=== PATIENT | female | born 1930 | race Hispanic/Latino ===

== ENCOUNTER 2017-06-07 12:04 | Inpatient (IN) | payer MEDICARE ==
[2017-06-07 12:13] VITALS: BMI 27.1
[2017-06-07] MEDS ORDERED: Labetalol 5 mg/ml Inj 20ML IV STA ×2 (12:42→14:54)
[2017-06-07 13:01] LABS: BASO # 0.03 K/mm3 (0.0-2.0); BASO % 0.4 % (0.0-3.0); EOS % 0.1 % (1.5-5.0); GRAN # 5.64 (1.4-6.5); GRAN % 71.1 % (50.0-68.0); HEMOGLOBIN 10.9 gm/dL (12.0-16.0); LYMPH # 1.7 (1.2-3.4); LYMPH % 21.2 % (22.0-35.0); MEAN CELL VOLUME 82.7 fL (80.0-105.0); MEAN CORPUSCULAR HEMOGLOBIN 26.6 pg (25.0-35.0); MEAN CORPUSCULAR HGB CONC 32.2 g/dl (31.0-37.0); MEAN PLATELET VOLUME 11.2 fl (7.0-11.0); MONO # 0.6 (0.1-0.6); MONO % 7.2 % (1.0-6.0); PLATELET COUNT 176 10^3/uL (120.0-450.0); RED CELL DISTRIBUTION WIDTH 14.8 % (11.5-14.5); WHITE BLOOD COUNT 7.9 10^3/ul (4.5-11.0)
--- NOTE | 2017-06-07 13:08 | RAD ---
HISTORY: near syncope COMPARISON: 08/26/2015 FINDINGS: LUNGS: No active pulmonary disease. PLEURA: No significant pleural effusion identified, no pneumothorax apparent. CARDIOVASCULAR: Normal. OSSEOUS STRUCTURES: No significant abnormalities. VISUALIZED UPPER ABDOMEN: Normal. OTHER FINDINGS: None. IMPRESSION: No active disease.
[2017-06-07 13:12] LABS: INR 1.01 (0.93-1.08); PARTIAL THROMBOPLASTIN TIME 23.6 Seconds (23.7-30.8); PROTHROMBIN TIME 10.9 Seconds (9.9-11.8)
[2017-06-07 13:19] LABS: ALB/GLOB RATIO 1.2 (1.1-1.8); ALBUMIN 3.9 g/dL (3.0-4.8); ALT/SGPT 19 U/L (7-56); AST/SGOT 42 U/L (15-39); BLOOD UREA NITROGEN 22 mg/dL (7-21); CALCIUM 9.9 mg/dL (8.4-10.5); GFR AFRICAN-AMERICAN > 60; GFR NON-AFRICAN AMERICAN > 60; MAGNESIUM 1.9 mg/dL (1.7-2.2)
--- NOTE | 2017-06-07 13:26 | ED PDOC ---
Arrival/HPI - General Chief Complaint: Dizziness/Lightheaded Time Seen by Provider: 06/07/17 12:29 Historian: Patient - History of Present Illness Narrative History of Present Illness (Text): 06/07/17 12:35 Sonal Ribeiro is an 87 year old woman, whose past medical history includes hypertension, HDL, cardiac stents, and spinal stenosis, presents to the Emergency department complaining of waking up sweating, and almost passing out. Patient reports feeling lightheadedness, but denies chest pain, shortness of breath, headache, cough, nausea, vomiting, diarrhea, abdominal pain, or other complaints. Dr. Rider Time/Duration: 1-3 hours Symptom Onset: Sudden Symptom Course: Unchanged Activities at Onset: Rest Modifying Factors (Text): None Context: Home Associated Symptoms (Text): lightheadedness and night sweats Past Medical History - Provider Review Nursing Documentation Reviewed: Yes - Infectious Disease Hx of Infectious Diseases: None - Cardiac Hx Hypertension: Yes - Pulmonary Hx Respiratory Disorders: No - Neurological Hx Neurological Disorder: No - HEENT Hx Glaucoma: Yes - Renal Hx Renal Disorder: No - Endocrine/Metabolic Hx Endocrine Disorders: No - Hematological/Oncological Hx Blood Disorders: No - Integumentary Hx Dermatological Disorder: No - Musculoskeletal/Rheumatological Hx Falls: Yes Hx Spinal Stenosis: Yes - Gastrointestinal Hx Gastrointestinal Disorders: No - Genitourinary/Gynecological Hx Genitourinary Disorders: No - Psychiatric Hx Psychophysiologic Disorder: No Hx Substance Use: No - Surgical History Hx Coronary Stent: Yes - Anesthesia Hx Anesthesia: Yes Hx Anesthesia Reactions: No Hx Malignant Hyperthermia: No - Suicidal Assessment Feels Threatened In Home Enviroment: No Family/Social History - Physician Review Nursing Documentation Reviewed: Yes Family/Social History: Unknown Family HX Smoking Status: Never Smoked Hx Alcohol Use: No Hx Substance Use: No Hx Substance Use Treatment: No Allergies/Home Meds Allergies/Adverse Reactions: Allergies No Known Allergies Allergy (Verified 02/09/15 21:26) Home Medications: Home Meds Medication Instructions Recorded Confirmed Brimonidine 0.15% [Alphagan P 1 drop OU BID 02/09/15 06/07/17 0.15% Opht] Furosemide [Lasix] 20 mg PO DAILY 02/09/15 06/07/17 Latanoprost 0.005% Opht [Xalatan 1 drop OU DAILY 02/09/15 06/07/17 Opht] Nebivolol HCl [Bystolic] 20 mg PO DAILY 02/09/15 06/07/17 Rosuvastatin Calcium [Crestor] 20 mg PO DAILY 02/09/15 06/07/17 Valsartan [Diovan] 160 mg PO DAILY 06/07/17 06/07/17 Review of Systems - Physician Review All systems were reviewed & negative as marked: Yes - Review of Systems Constitutional: Night Sweats. absent: Fevers Respiratory: absent: SOB Cardiovascular: absent: Chest Pain Gastrointestinal: absent: Abdominal Pain, Nausea Neurological: Other (lightheadedness). absent: Headache Physical Exam Vital Signs Temp Pulse Resp BP Pulse Ox 06/07/17 16:54 63 156/110 H 06/07/17 15:34 62 207/76 H 06/07/17 14:04 64 18 184/78 H 98 06/07/17 13:08 62 210/78 H 06/07/17 12:19 205/64 H 06/07/17 12:18 98.5 F 60 18 206/45 H 96 Temperature: Afebrile Blood Pressure: Hypertensive Pulse: Regular Respiratory Rate: Normal Appearance: Positive for: Well-Appearing, Non-Toxic, Comfortable Pain Distress: None Mental Status: Positive for: Alert and Oriented X 3 - Systems Exam Head: Present: Atraumatic, Normocephalic Pupils: Present: PERRL Extroacular Muscles: Present: EOMI Conjunctiva: Present: Normal Mouth: Present: Moist Mucous Membranes Neck: Present: Normal Range of Motion Respiratory/Chest: Present: Clear to Auscultation, Good Air Exchange. No: Respiratory Distress, Accessory Muscle Use Cardiovascular: Present: Regular Rate and Rhythm, Normal S1, S2. No: Murmurs Abdomen: Present: Normal Bowel Sounds. No: Tenderness, Distention, Peritoneal Signs Back: Present: Normal Inspection Upper Extremity: Present: Normal Inspection. No: Cyanosis, Edema Lower Extremity: Present: Normal Inspection. No: Edema Neurological: Present: GCS=15, CN II-XII Intact, Speech Normal Skin: Present: Warm, Dry, Normal Color. No: Rashes Psychiatric: Present: Alert, Oriented x 3, Normal Insight, Normal Concentration Medical Decision Making ED Course and Treatment: 06/07/17 12:35 Impression: 87 year old female with lightheadedness about to pass out. Differential Diagnosis included but are not limited to: near syncopy vs. hypertensive urgency Plan: -- EKG -- Chest X-ray -- CT Head without contrast -- Labs -- Urinalysis -- Trandate -- Reassess and disposition Prior Visits: Notes and results from previous visits were reviewed. Patient was last seen in the emergency department on 08/27/2015. Progress Notes: EKG: Ordered, reviewed, and independently interpreted the EKG. Rate : 62 BPM Rhythm : NSR Interpretation : Left bundle branch block. No changes from previous EKG. Comparison : 08/27/2017 06/07/17 13:15 Chest X-ray: Creator : Yousuf Gong MD COMPARISON: 08/26/2015 FINDINGS: LUNGS:No active pulmonary disease. PLEURA: No significant pleural effusion identified, no pneumothorax apparent. CARDIOVASCULAR: Normal. OSSEOUS STRUCTURES: No significant abnormalities. VISUALIZED UPPER ABDOMEN: Normal. OTHER FINDINGS: None. IMPRESSION: No active disease. 06/07/17 14:[address]: Creator : Yousuf Gong MD COMPARISON: 02/09/2015 FINDINGS: HEMORRHAGE: No intracranial hemorrhage. BRAIN: No mass effect or edema. Chronic microvascular changes are seen in the periventricular white matter VENTRICLES: Unremarkable. No hydrocephalus. CALVARIUM: Unremarkable. PARANASAL SINUSES: Unremarkable as visualized. No significant inflammatory changes. MASTOID AIR CELLS: Unremarkable as visualized. No inflammatory changes. OTHER FINDINGS: None. IMPRESSION: No acute findings 06/07/17 15:22 Case was discussed with Dr. Martel, Oncology Coordinator, who was consulted on last admission. He recommended Lovenox and Aspirin. Case discussed with Dr. Machado who will place on his service to Telemetry. The hospitalist admits for Dr. Rider. We agreed to add Plavix for treatment. 06/07/17 17:24 Blood pressure improved to 156/110. This was after two doses of Labetolol. Patient is comfortable and in no acute distress. Does not have chest pain or shortness of breathe. No symptoms at this time. - Critical Care Critical Care Minutes: 30 minutes - Lab Interpretations Lab Results: 06/07/17 12:45 06/07/17 12:45 Lab Results 06/07/17 12:45: TSH 3rd Generation 4.27 06/07/17 12:45: Triglycerides 108, Cholesterol 171, LDL Cholesterol Direct 75, HDL Cholesterol 75 H 06/07/17 12:45: PT 10.9, INR 1.01, APTT 23.6 L 06/07/17 12:45: Sodium 138, Potassium 4.2, Chloride 105, Carbon Dioxide 24, Anion Gap 13, BUN 22 H, Creatinine 0.8, Est GFR ( Amer) > 60, Est GFR ( Non-Af Amer) > 60, Random Glucose 96, Calcium 9.9, Magnesium 1.9, Total Bilirubin 0.7, AST 42 H, ALT 19, Alkaline Phosphatase 65, Lactate Dehydrogenase 450, Total Creatine Kinase 160, Troponin I 2.15 H* D, Total Protein 7.1, Albumin 3.9, Globulin 3.2, Albumin/Globulin Ratio 1.2 06/07/17 12:45: WBC 7.9, RBC 4.10, Hgb 10.9 L, Hct 33.9 L, MCV 82.7, MCH 26.6, MCHC 32.2, RDW 14.8 H, Plt Count 176, MPV 11.2 H, Gran % 71.1 H, Lymph % (Auto) 21.2 L, Brewster % (Auto) 7.2 H, Eos % (Auto) 0.1 L, Baso % (Auto) 0.4, Gran # 5.64 , Lymph # 1.7, Brewster # 0.6, Eos # 0.0, Baso # 0.03 I have reviewed the lab results: Yes - RAD Interpretation Radiology Orders: 06/07/17 12:42 HEAD W/O CONTRAST [CT] Stat CHEST PORTABLE [RAD] Stat Payable Manager: Radiologist - EKG Interpretation Interpreted by ED Physician: Yes Type: 12 lead EKG - Medication Orders Current Medication Orders: Aspirin (Ecotrin) 325 mg PO 0800 [facility] Atorvastatin Calcium (Lipitor) 80 mg PO DIN [facility] Brimonidine Tartrate (Alphagan P 0.15% Opht) 1 drop OU BID [facility] Clopidogrel Bisulfate (Plavix) 75 mg PO DAILY [facility] Enoxaparin Sodium (Lovenox) 70 mg SC Q12H [facility] PRN Reason: Protocol Furosemide (Lasix) 20 mg PO DAILY [facility] Hydralazine HCl (Apresoline) 10 mg IVP Q6 PRN PRN Reason: Systolic Blood Pressure Last Admin: 06/07/17 16:54 Dose: 10 mg Latanoprost (Xalatan Opht) 0 ml OU DAILY [facility] Non-Formulary Medication (Nebivolol Hcl [Bystolic]) 20 mg PO DAILY [facility] Valsartan (Diovan) 320 mg PO DAILY [facility] Discontinued Medications Aspirin (Aspirin Chewable) 162 mg PO STAT [facility] Stop: 06/07/17 15:34 Aspirin (Aspirin Chewable) 162 mg PO STAT STA Stop: 06/07/17 16:21 Atorvastatin Calcium (Lipitor) 80 mg PO STAT [facility] Stop: 06/07/17 16:17 Clopidogrel Bisulfate (Plavix) 300 mg PO STAT [facility] Stop: 06/07/17 16:21 Last Admin: 06/07/17 17:20 Dose: 300 mg Enoxaparin Sodium (Lovenox) 70 mg SC STAT [facility] PRN Reason: Protocol Stop: 06/07/17 15:09 Last Admin: 06/07/17 15:34 Dose: 70 mg Labetalol HCl (Trandate) 20 mg IV STAT [facility] Stop: 06/07/17 12:43 Last Admin: 06/07/17 13:08 Dose: 20 mg Labetalol HCl (Trandate) 40 mg IV STAT STA Stop: 06/07/17 14:55 Last Admin: 06/07/17 15:34 Dose: 40 mg - Scribe Statement The provider has reviewed the documentation as recorded by the Scribe 06/07/2017 Dari Jorge Provider Scribe Attestation: All medical record entries made by the Scribe were at my direction and personally dictated by me. I have reviewed the chart and agree that the record accurately reflects my personal performance of the history, physical exam, medical decision making, and the department course for this patient. I have also personally directed, reviewed, and agree with the discharge instructions and disposition. Disposition/Present on Arrival - Present on Arrival Any Indicators Present on Arrival: No History of DVT/PE: No History of Uncontrolled Diabetes: No Urinary Catheter: No History of Decub. Ulcer: No History Surgical Site Infection Following: None - Disposition Have Diagnosis and Disposition been Completed?: Yes Diagnosis: NSTEMI (non-ST elevated myocardial infarction), Hypertensive emergency Disposition: HOSPITALIZED Disposition Time: 15:37 Patient Plan: Admission Condition: GUARDED
[2017-06-07 13:58] LABS: TROPONIN I 2.15 ng/mL
--- NOTE | 2017-06-07 14:39 | CT ---
PROCEDURE: CT HEAD WITHOUT CONTRAST. HISTORY: near syncope, htn COMPARISON: 02/09/2015 TECHNIQUE: Axial computed tomography images were obtained through the head/brain without intravenous contrast. Radiation dose: Total exam DLP = 780 mGy-cm. This CT exam was performed using one or more of the following dose reduction techniques: Automated exposure control, adjustment of the mA and/or kV according to patient size, and/or use of iterative reconstruction technique. FINDINGS: HEMORRHAGE: No intracranial hemorrhage. BRAIN: No mass effect or edema. Chronic microvascular changes are seen in the periventricular white matter VENTRICLES: Unremarkable. No hydrocephalus. CALVARIUM: Unremarkable. PARANASAL SINUSES: Unremarkable as visualized. No significant inflammatory changes. MASTOID AIR CELLS: Unremarkable as visualized. No inflammatory changes. OTHER FINDINGS: None. IMPRESSION: No acute findings
[2017-06-07] MEDS ORDERED: Enoxaparin 80 mg Syringe SC STA (15:08)
--- NOTE | 2017-06-07 15:14 | CARD ---
APPROVED REPORT EKG Measurement Heart [id number] <Conclusion> Normal sinus rhythm Left axis deviation Left bundle branch block
[2017-06-07 16:40] LABS: HDL CHOLESTEROL 75 mg/dL (29-60)
[2017-06-07 16:51] LABS: LDL CHOLESTEROL 75 mg/dL (0-129)
--- NOTE | 2017-06-07 18:11 | CP.PCM.HP ---
<Edward Norman - Last Filed: 06/07/17 18:02> History of Present Illness - History of Present Illness History of Present Illness: Patient is an 87 year old female with a PMH of hypertension, HLD, CAD stent x1 , and spinal stenosis who presents to the emergency department with complaints of general fatigue and lightheadedness. Pt reports waking up this AM with presenting symptoms. Pt reports when she was up getting around today she experienced sweating and pre-syncopal episode. The patient was evaluated in the ED and found to have an increase in her troponin level of 2.15 and no changes on EKG from previous. Dr. Martel was consulted on her last admission and will be consulted for her on this admission. Pt denies chest pain, shortness of breath, headache, abdominal pain, fever, and vomiting. PMH: hypertension, HLD, CAD, intermittent nausea, and spinal stenosis PSH: cardiac stent 13 years ago, cataracts, left foot hammer-toe repair Allergies: denies FMH: father- MD Social: denies smoking and alcohol use Meds: Diovan 160mg Bystolic 20mg Xalatan Ophthalmic drops Furosemide 20mg Alphagan drops Crestor 20mg Present on Admission - Present on Admission Any Indicators Present on Admission: No History of DVT/PE: No History of Uncontrolled Diabetes: No Urinary Catheter: No Decubitus Ulcer Present: No Review of Systems - Hematologic/Lymphatic Additional comments: Constitutional: pt denies fever, chills, generalized weakness ENT: pt denies dysphagia, otalgia, hearing deficit, rhinorrhea Eyes: pt denies sudden loss of vision, diplopia, blurred vision MSK: pt denies muscle stiffness, extremity cramping Cardio: pt denies heart murmur, cp Pulm: pt denies sob, cough, hemoptysis, wheeze GI: pt denies loss of appetite, abdominal pain, constipation, melena, v/d : pt denies burning on urination, urinary frequency, hematuria, urinary urgency Neuro: +dizziness, pt denies paresis, BELLO, paresthesia, numbness, tingling Derm: pt denies nail changes Endo: + night sweats, pt denies polydipsia Psych: pt denies anxiety, depression, mood changes Past Patient History - Infectious Disease Hx of Infectious Diseases: None - Past Social History Smoking Status: Never Smoked Alcohol: None Drugs: Denies - CARDIAC Hx Hypertension: Yes - PULMONARY Hx Respiratory Disorders: No - NEUROLOGICAL Hx Neurological Disorder: No - HEENT Hx Glaucoma: Yes - RENAL Hx Chronic Kidney Disease: No - ENDOCRINE/METABOLIC Hx Endocrine Disorders: No - HEMATOLOGICAL/ONCOLOGICAL Hx Blood Disorders: No - INTEGUMENTARY Hx Dermatological Problems: No - MUSCULOSKELETAL/RHEUMATOLOGICAL Hx Falls: Yes Hx Spinal Stenosis: Yes - GASTROINTESTINAL Hx Gastrointestinal Disorders: No - GENITOURINARY/GYNECOLOGICAL Hx Genitourinary Disorders: No - PSYCHIATRIC Hx Psychophysiologic Disorder: No Hx Substance Use: No - SURGICAL HISTORY Hx Coronary Stent: Yes - ANESTHESIA Hx Anesthesia: Yes Hx Anesthesia Reactions: No Hx Malignant Hyperthermia: No Meds Allergies/Adverse Reactions: Allergies Allergy/AdvReac Type Severity Reaction Status Date / Time No Known Allergies Allergy Verified 02/09/15 21:26 Physical Exam - Additional Findings Additional findings: Vital Signs as below Constitutional: a&o x 4 Head and Neck: neck supple, no jvd, trachea midline, carotid midline, no cervical/head mass Eyes: joel, nonicteric sclera, eom intact ENT: auditory acuity grossly intact, throat not congested, no nasal deformity Cardio: rrr, no m/r/g, no carotid bruit, nml s1, s2 Pulm: no accessory muscle use, equal nml breath sounds bilaterally, ctab Abd: s/nt/nd, nbs x 4 q, no palpable masses Derm: no rashes, no ulcers Extr: 2+ pitting edema, no cyanosis, no calf tenderness, no lesions Neuro: cn II-XII grossly intact, ue and le 5/5 muscle strength bilaterally, no los ue, le bilaterally and core Results - Vital Signs Recent Vital Signs: Last Vital Signs Temp 98.5 F 06/07/17 12:18 Pulse 63 06/07/17 16:54 Resp 18 06/07/17 14:04 BP 156/110 H 06/07/17 16:54 Pulse Ox 98 06/07/17 14:04 - Labs Result Diagrams: 06/07/17 12:45 06/07/17 12:45 Assessment & Plan - Assessment and Plan (Free Text) Assessment: Pt is a 87 year old female with elevation of Troponin of 2.15 with no acute changes on EKG Plan: 1. NSTEMI - Elevated troponin of 2.[address] segment elevations or T wave inversions - Continue to follow patient with Troponin Q6h x2 or until decline - Consult Dr. Martel with Cardiology - 2D echocardiogram - Lovenox - Lipitor 80mg - Aspirin 365 - Plavix load with 300 and continue 75mg daily - Valsartan 320mg - Lasix 20mg 2. Hypertension - History of hypertension - Patient BP in ED 200/100 - Continue to monitor closely - Increase Valsartan to 320mg - Hydralazine IVP 10 mg with goal of SBP <160 3. Hx of CHF - 2d echocardiogram to evaluate EF 4. GI/DVT pps - Protonix 40mg - Lovenox - Date & Time Date: 06/07/17 Time: 18:28 <Shira Hitchcock MD - Last Filed: 06/11/17 16:55> Results - Vital Signs Recent Vital Signs: Last Vital Signs Temp 98.3 F 06/11/17 12:00 Pulse 65 06/11/17 14:16 Resp 20 06/11/17 12:00 BP 183/56 H 06/11/17 14:16 Pulse Ox 97 06/11/17 09:00 - Labs Result Diagrams: 06/11/17 08:30 06/09/17 11:00 Labs: Laboratory Results - last 24 hr 06/11/17 08:30 WBC 10.5 RBC 4.19 Hgb 11.3 L Hct 34.5 L MCV 82.3 MCH 27.0 MCHC 32.8 RDW 15.1 H Plt Count 183 MPV 11.7 H Gran % 75.0 H Lymph % (Auto) 15.8 L Hunt % (Auto) 8.5 H Eos % (Auto) 0.5 L Baso % (Auto) 0.2 Gran # 7.85 H Lymph # 1.7 Hunt # 0.9 H Eos # 0.1 Baso # 0.02 Attending/Attestation - Attestation I have personally seen and examined this patient.: Yes I have fully participated in the care of the patient.: Yes I have reviewed all pertinent clinical information: Yes Notes (Text): 06/11/17 16:50 Patient was seen and examined with faculty i on call medical assistant. 87 F with PMH of CAD, SP cardiac stent, CHF,HTN was admitted with weakness, not feeling well, found to have elevated troponin 2.13 suggestive of NSEMI, EKG is negative for acute ischemic changes.Patient has been started on , on ASA/Plavix/ lovenox/Lipitor. We will get 2D Echo, Blood pressure is running high, we will adjust medications and will monitor. Cardiology has been consulted, we will follow up cardiology recommendation, patient will need cardiac catherization. Management plan was discussed in detail with patient. Education was provided.
[2017-06-07] MEDS ORDERED: Morphine 2 mg/ml ISec IVP PRN (21:26)
[2017-06-08] MEDS ORDERED: Enoxaparin 80 mg Syringe SC SCH (03:30)
[2017-06-08] MEDS: Pantoprazole 40 mg EC Tab PO SCH ×2 (06:32→17:40)
[2017-06-08] MEDS ORDERED: Aspirin 325 mg EC Tablets PO SCH (08:00)
[2017-06-08 08:50] LABS: ALB/GLOB RATIO 1.2 (1.1-1.8); ALBUMIN 3.4 g/dL (3.0-4.8); ALT/SGPT 19 U/L (7-56); AST/SGOT 45 U/L (15-39); BLOOD UREA NITROGEN 22 mg/dL (7-21); CALCIUM 9.7 mg/dL (8.4-10.5); GFR AFRICAN-AMERICAN > 60; GFR NON-AFRICAN AMERICAN > 60; MAGNESIUM 1.9 mg/dL (1.7-2.2)
--- NOTE | 2017-06-08 08:52 | CP.PCM.PN ---
<Edward Norman - Last Filed: 06/08/17 12:56> Subjective - Date & Time of Evaluation Date of Evaluation: 06/08/17 Time of Evaluation: 08:48 - Subjective Subjective: Pt s/e at bedside on GMF. Patient has no complaints at this time. Denies chest pain, chest pressure, shortness of breath, nausea, vomiting. Pt troponin this AM has shown initial decline at 2.6 from 4.37 yesterday evening. Patient is being evaluated by cardiology and plan for heart catheritization tomorrow. Objective - Vital Signs/Intake and Output Vital Signs (last 24 hours): Temp Pulse Resp BP Pulse Ox 97.5 F L 60 20 164/56 H 98 06/08/17 06:00 06/08/17 06:30 06/08/17 06:00 06/08/17 06:30 06/08/17 06:00 Intake and Output: 06/08/17 06/08/17 06:59 18:59 Intake Total 240 Output Total 0 Balance 240 - Medications Medications: Current Medications Aspirin (Ecotrin) 81 mg PO 0800 [facility] Atorvastatin Calcium (Lipitor) 80 mg PO DIN [facility] Brimonidine Tartrate (Alphagan P 0.15% Opht) 1 drop OU BID [facility] Clopidogrel Bisulfate (Plavix) 75 mg PO DAILY [facility] Enoxaparin Sodium (Lovenox) 70 mg SC Q12H [facility] PRN Reason: Protocol Last Admin: 06/08/17 03:46 Dose: 70 mg Furosemide (Lasix) 20 mg PO DAILY [facility] Hydralazine HCl (Apresoline) 10 mg IVP Q6 PRN PRN Reason: Systolic Blood Pressure Last Admin: 06/08/17 06:30 Dose: 10 mg Latanoprost (Xalatan Opht) 0 ml OU DAILY [facility] Metoprolol Tartrate (Lopressor) 25 mg PO BID [facility] Morphine Sulfate (Morphine) 1 mg IVP Q4H PRN PRN Reason: Pain, Mild (1-3) Non-Formulary Medication (Nebivolol Hcl [Bystolic]) 20 mg PO DAILY [facility] Pantoprazole Sodium (Protonix Ec Tab) 40 mg PO 0600,1600 [facility] Last Admin: 06/08/17 06:32 Dose: 40 mg Valsartan (Diovan) 320 mg PO DAILY [facility] - Labs Labs: PT 10.9 Seconds (9.9-11.8) 06/07/17 12:45 INR 1.01 (0.93-1.08) 06/07/17 12:45 APTT 23.6 Seconds (23.7-30.8) L 06/07/17 12:45 - Head Exam Head Exam: ATRAUMATIC, NORMAL INSPECTION - Eye Exam Eye Exam: EOMI, PERRL - ENT Exam ENT Exam: Mucous Membranes Moist - Neck Exam Neck Exam: Full ROM - Respiratory Exam Respiratory Exam: Clear to Ausculation Bilateral, NORMAL BREATHING PATTERN - Cardiovascular Exam Cardiovascular Exam: REGULAR RHYTHM, +S1, +S2 - Rectal Exam Rectal Exam: Deferred - Extremities Exam Extremities Exam: Full ROM, Normal Capillary Refill, Normal Inspection - Back Exam Back Exam: Full ROM, NORMAL INSPECTION - Neurological Exam Neurological Exam: Alert, Awake, CN II-XII Intact Neuro motor strength exam: Left Upper Extremity: 5, Right Upper Extremity: 5, Left Lower Extremity: 5, Right Lower Extremity: 5 - Psychiatric Exam Psychiatric exam: Normal Affect, Normal Mood - Skin Skin Exam: Dry, Warm Assessment and Plan - Assessment and Plan (Free Text) Assessment: Patient is a 87 year old female who is being evaluated for NSTEMI Plan: 1. NSTEMI - Elevated troponin of 2.[address] segment elevations or T wave inversions - Troponin peak last evening of 4.37 and is 2.60 this AM - Dr. Martel with Cardiology following - [facility] scheduled for tomorrow - Pt is npo after midnight - 2D echocardiogram - Lovenox - Lipitor 80mg - Aspirin 365 - Plavix load with 300 and continue 75mg daily - Valsartan 320mg - Lasix 20mg 2. Hypertension - History of hypertension - Patient BP this AM is 156/57 - Continue to monitor closely - Increase Valsartan to 320mg - Hydralazine IVP 10 mg with goal of SBP <160 3. Hx of CHF - 2d echocardiogram to evaluate EF 4. GI/DVT pps - Protonix 40mg - Lovenox <Beverly Haley - Last Filed: 06/08/17 17:22> Objective - Vital Signs/Intake and Output Vital Signs (last 24 hours): Temp Pulse Resp BP Pulse Ox 98.8 F 52 L 18 156/57 H 98 06/08/17 11:46 06/08/17 14:00 06/08/17 11:46 06/08/17 11:46 06/08/17 06:00 Intake and Output: 06/08/17 06/08/17 06:59 18:59 Intake Total 240 960 Output Total 0 Balance 240 960 - Medications Medications: Current Medications Aspirin (Ecotrin) 81 mg PO DAILY [facility] Last Admin: 06/08/17 10:36 Dose: 81 mg Atorvastatin Calcium (Lipitor) 80 mg PO DIN [facility] Clopidogrel Bisulfate (Plavix) 75 mg PO DAILY [facility] Last Admin: 06/08/17 10:10 Dose: 75 mg Furosemide (Lasix) 20 mg PO DAILY [facility] Last Admin: 06/08/17 10:13 Dose: 20 mg Home Med (Home Med) 0 unit OU BID [facility] Hydralazine HCl (Apresoline) 10 mg IVP Q6 PRN PRN Reason: Systolic Blood Pressure Last Admin: 06/08/17 06:30 Dose: 10 mg Latanoprost (Xalatan Opht) 0 ml OU DAILY [facility] Last Admin: 06/08/17 10:21 Dose: Not Given Metoprolol Tartrate (Lopressor) 25 mg PO BID [facility] Last Admin: 06/08/17 10:10 Dose: 25 mg Morphine Sulfate (Morphine) 1 mg IVP Q4H PRN PRN Reason: Pain, Mild (1-3) Pantoprazole Sodium (Protonix Ec Tab) 40 mg PO 0600,1600 [facility] Last Admin: 06/08/17 06:32 Dose: 40 mg Valsartan (Diovan) 320 mg PO DAILY [facility] Last Admin: 06/08/17 10:09 Dose: 320 mg - Labs Labs: 06/08/17 07:00 06/08/17 06:00 PT 10.9 Seconds (9.9-11.8) 06/07/17 12:45 INR 1.01 (0.93-1.08) 06/07/17 12:45 APTT 23.6 Seconds (23.7-30.8) L 06/07/17 12:45 Attending/Attestation - Attestation I have personally seen and examined this patient.: Yes I have fully participated in the care of the patient.: Yes I have reviewed all pertinent clinical information, including history, physical exam and plan: Yes Notes (Text): 06/08/17 17:20 attending note; Patient seen and examined with resident. Patient is a 87-year-old female with a past medical history of hypertension, hypercholesemia, CAD with stent placement is admitted with shortness of breath and chest discomfort. acute non-ST elevation OR; continue aspirin, Plavix, Lipitor, metoprolol. Troponin is trending down. Nothing by mouth for cardiac cath in a.m. case discussed with cardiology in detail. Upon discharge the patient will follow up with PMD .
--- NOTE | 2017-06-08 08:55 | CON ---
INDICATIONS: NSTEMI. HISTORY OF PRESENT ILLNESS: This is an 87-year-old woman admitted yesterday through the emergency room with weakness, diaphoresis, near-syncope. She felt unwell at home and came to the emergency room. There was no history of chest pain, but troponins are elevated. This morning she feels better resting in bed without any symptoms at all. There was no chest pain, orthopnea, PND, vertigo, edema, fever, chills, cough, sputum production, hemoptysis, abdominal pain, nausea, vomiting, diarrhea, constipation, melena. PAST MEDICAL HISTORY: Notable for coronary artery disease with remote coronary intervention. She has history of chronic left bundle-branch block, hypertension, hyperlipidemia, spinal stenosis, glaucoma, cataracts, and podiatric surgery. There is no history of rheumatic fever, congestive heart failure, diabetes, stroke, TIA, or gout. MEDICATIONS: At the time of admission include Bystolic, Crestor, Diovan, Lasix, Xalatan, and Alphagan. ALLERGIES: There are no medications allergies. SOCIAL HISTORY: She lives at home. She is ambulatory. She does not smoke. She does not drink alcohol significantly. FAMILY HISTORY: Notable for heart disease. REVIEW OF SYSTEMS: A 10-point review of systems is otherwise unremarkable except as noted above. PHYSICAL EXAMINATION: GENERAL: She is a well-developed elderly woman, lying in bed, on telemetry, in no acute distress. VITAL SIGNS: She is in sinus rhythm with left bundle-branch block, afebrile. Blood pressure 164/56, respirations 18 to 20, O2 saturation 98% on room air. HEENT: Reveals no neck vein distention, thyromegaly, carotid bruits. Mucous membranes moist. Conjunctivae pink. NECK: Supple. LUNGS: Lung rinaldi clear. HEART: Revealed normal first and second heart sounds. There is a systolic murmur along the left sternal border at the cardiac apex. ABDOMEN: Soft. Bowel sounds present. No mass, organomegaly, tenderness, rebound, guarding, CVA tenderness, or palpable abdominal aortic aneurysm. EXTREMITIES: Revealed no cyanosis or clubbing. There is mild edema. NEUROLOGIC: She is awake, alert, and oriented. PSYCHIATRIC: Normal as to mood and affect. SKIN: Warm and dry. No rash or cellulitis. LABORATORY DATA AND IMAGING: Chest x-ray reveals no active disease. CT scan of the head reveals no acute findings. EKG reveals regular sinus rhythm with left bundle-branch block unchanged from the previous EKG. White count, platelet count normal. Hemoglobin 10.9, hematocrit 33.9. PT/INR normal. PTT 23.6. Electrolytes, BUN, creatinine, blood sugar unremarkable. AST mildly elevated at 42, ALT normal, alk phos normal, magnesium normal. CK 160. Troponins are 2.15, repeat 4.37, repeat 2.60. Total cholesterol 171, LDL 75, triglycerides 108. TSH is normal. HDL 75. IMPRESSION: The patient is an 87-year-old woman with known coronary artery disease status post remote coronary stent with a chronic left bundle-branch block, admitted with nonspecific symptoms of lightheadedness, weakness, near-syncope, diaphoresis, but no chest pain, found to have elevated troponins, probable NSTEMI. She is on telemetry. She has received aspirin, Plavix, Lovenox, hydralazine. She has had no further symptoms. At this time, I will discuss with her whether or not she wishes to proceed with cardiac catheterization. I will also discuss her case with Dr. Rider. In the meantime, we will continue medical treatment. She will get aspirin, Diovan, Lasix, Lipitor, metoprolol, Lovenox, Plavix. We will check an echocardiogram. We will monitor I's and O's, stool for occult blood. I will review her old records. I will make additional recommendations based on the clinical course. Josue Martel MD MTDMoises
[2017-06-08 09:10] LABS: BASO # 0.02 K/mm3 (0.0-2.0); BASO % 0.3 % (0.0-3.0); EOS # 0.1 (0.0-0.7); EOS % 1.4 % (1.5-5.0); GRAN # 3.93 (1.4-6.5); GRAN % 53.7 % (50.0-68.0); HEMOGLOBIN 10.3 gm/dL (12.0-16.0); LYMPH # 2.4 (1.2-3.4); LYMPH % 32.4 % (22.0-35.0); MEAN CELL VOLUME 81.5 fL (80.0-105.0); MEAN CORPUSCULAR HEMOGLOBIN 26.5 pg (25.0-35.0); MEAN CORPUSCULAR HGB CONC 32.5 g/dl (31.0-37.0); MONO # 0.9 (0.1-0.6); MONO % 12.2 % (1.0-6.0); PLATELET COUNT 172 10^3/uL (120.0-450.0); RBC 3.89 10^6/uL (3.5-6.1); RED CELL DISTRIBUTION WIDTH 14.9 % (11.5-14.5); WHITE BLOOD COUNT 7.3 10^3/ul (4.5-11.0)
[2017-06-08] MEDS ORDERED: NEBIVOLOL HCL 20 MG PO SCH (10:00)
--- NOTE | 2017-06-08 10:10 | CARD ---
APPROVED REPORT EKG Measurement Heart [id number] <Conclusion> Normal sinus rhythm Left axis deviation Left bundle branch block No change
[2017-06-08] MEDS: Brimonidine 0.15% 50 DROP/5 ML BOTTLE OU SCH ×2 (10:20→19:51)
[2017-06-08] MEDS: Latanoprost 2.5 ml Opht Soln OU SCH (10:21)
--- NOTE | 2017-06-08 14:58 | CARD ---
APPROVED REPORT EXAM: Two-dimensional and M-mode echocardiogram with Doppler and color Doppler. INDICATION NSTEMI 2D DIMENSIONS Left Atrium (2D)4.6 (1.6-4.0cm)IVSd1.2 (0.7-1.1cm) LVDd4.0 (3.9-5.9cm)PWd1.5 (0.7-1.1cm) LVDs2.7 (2.5-4.0cm)FS (%) 32.2 % LVEF (%)61.0 (>50%) M-Mode DIMENSIONS Aortic Root2.10 (2.2-3.7cm)Aortic Cusp Exc.0.80 (1.5-2.0cm) Aortic Valve AoV Peak Fvchskpn343.0cm/sAoV VTI59.1cmAO Peak GR.24mmHg LVOT Peak Cxhvmnro09.0cm/sLVOT VTI22.90cmAO Mean GR.12mmHg Mitral Valve MV E Kpgbuxll565.0cm/sMV A Zgtxlgqu89.0cm/sE/A ratio1.8 TDI E/Lateral E'0.0E/Medial E'0.0 Tricuspid Valve TR Peak Hxihayvm775ok/sRAP [id number] Peak Gr.47mmHg [id number] LEFT VENTRICLE The left ventricle is normal size. There is mild to moderate concentric left ventricular hypertrophy. The left ventricular function is normal. The left ventricular ejection fraction is within the normal range. There is normal LV segmental wall motion. RIGHT VENTRICLE The right ventricle is normal size. The right ventricular systolic function is normal. ATRIA The left atrium is moderately dilated. The right atrium is mildly dilated. The interatrial septum is intact with no evidence for an atrial septal defect. AORTIC VALVE The aortic valve is moderately calcified. There is mild valvular aortic stenosis. MITRAL VALVE Mitral annular calcification is moderate. Mitral regurgitation is moderate. TRICUSPID VALVE The tricuspid valve is normal in structure. There is moderate tricuspid regurgitation. There is moderate pulmonary hypertension. PULMONIC VALVE The pulmonary valve is normal in structure. GREAT VESSELS The aortic root is normal in size. The IVC is normal in size and collapses >50% with inspiration. PERICARDIAL EFFUSION There is no pleural effusion. There is no pericardial effusion. <Conclusion> Biatrial enlargement. Normal LV size and systolic function. Mild to moderate concentric LVH. Mild . Moderate MR. Moderate TR.
[2017-06-08] MEDS: ALPHAGAN 0.1% OU SCH ×3 (17:40→22:09)
[2017-06-08] MEDS: EYE OU SCH ×3 (17:40→22:09)
--- NOTE | 2017-06-09 05:52 | CP.PCM.PN ---
<Edward Norman - Last Filed: 06/09/17 18:48> Subjective - Date & Time of Evaluation Date of Evaluation: 06/09/17 Time of Evaluation: 13:15 - Subjective Subjective: Patient s/e at bedside on F. No acute events overnight. Patient went for heart cath today with findings of severe left main disease as well as an occluded RCA. The patient is laying flat after procedure. She denies any nausea , vomiting, chest pain, shortness of breath. Objective - Vital Signs/Intake and Output Vital Signs (last 24 hours): Temp Pulse Resp BP Pulse Ox 97.9 F 52 L 18 192/78 H 98 06/09/17 00:01 06/09/17 02:00 06/09/17 00:01 06/09/17 00:01 06/08/17 06:00 Intake and Output: 06/08/17 06/09/17 18:59 06:59 Intake Total 960 Balance 960 - Medications Medications: Current Medications Aspirin (Ecotrin) 81 mg PO DAILY [facility] Last Admin: 06/08/17 10:36 Dose: 81 mg Atorvastatin Calcium (Lipitor) 80 mg PO DIN [facility] Last Admin: 06/08/17 17:40 Dose: 80 mg Clopidogrel Bisulfate (Plavix) 75 mg PO DAILY [facility] Last Admin: 06/08/17 10:10 Dose: 75 mg Furosemide (Lasix) 20 mg PO DAILY [facility] Last Admin: 06/08/17 10:13 Dose: 20 mg Home Med (Home Med) 0 unit OU BID [facility] Last Admin: 06/08/17 22:09 Dose: 1 unit Hydralazine HCl (Apresoline) 10 mg IVP Q6 PRN PRN Reason: Systolic Blood Pressure Last Admin: 06/08/17 23:34 Dose: 10 mg Latanoprost (Xalatan Opht) 0 ml OU DAILY [facility] Last Admin: 06/08/17 10:21 Dose: Not Given Metoprolol Tartrate (Lopressor) 25 mg PO BID [facility] Last Admin: 06/08/17 17:38 Dose: 25 mg Morphine Sulfate (Morphine) 1 mg IVP Q4H PRN PRN Reason: Pain, Mild (1-3) Pantoprazole Sodium (Protonix Ec Tab) 40 mg PO 0600,1600 [facility] Last Admin: 06/08/17 17:40 Dose: 40 mg Valsartan (Diovan) 320 mg PO DAILY [facility] Last Admin: 06/08/17 10:09 Dose: 320 mg - Labs Labs: 06/08/17 07:00 06/08/17 06:00 PT 10.9 Seconds (9.9-11.8) 06/07/17 12:45 INR 1.01 (0.93-1.08) 06/07/17 12:45 APTT 23.6 Seconds (23.7-30.8) L 06/07/17 12:45 - Head Exam Head Exam: ATRAUMATIC, NORMAL INSPECTION - Eye Exam Eye Exam: EOMI Pupil Exam: NORMAL ACCOMODATION - ENT Exam ENT Exam: Mucous Membranes Moist, Normal Exam - Neck Exam Neck Exam: Full ROM - Respiratory Exam Respiratory Exam: Clear to Ausculation Bilateral, NORMAL BREATHING PATTERN - Cardiovascular Exam Cardiovascular Exam: REGULAR RHYTHM, +S1, +S2 - GI/Abdominal Exam GI & Abdominal Exam: Normal Bowel Sounds - Extremities Exam Extremities Exam: Full ROM, Normal Capillary Refill. absent: Calf Tenderness, Tenderness Additional comments: peripheral pulses present bilateral - Neurological Exam Neurological Exam: Alert, Awake, CN II-XII Intact, Oriented x3 - Skin Skin Exam: Dry, Warm Additional comments: Groin site of cath is clean with dressing intact and without pain Assessment and Plan (1) NSTEMI (non-ST elevated myocardial infarction) Status: Acute - Assessment and Plan (Free Text) Assessment: Patient is a 87 year old female with a past medical history of HTN, CAD s/p 1 stent, HLD, who was admitted for chest discomfort and is being evaluated for NSTEMI Plan: 1. NSTEMI - Elevated troponin of 2.[address] segment elevations or T wave inversions - Troponin trended down - Dr. Martel with Cardiology following - [facility] scheduled for today showing severe ostial left main disease and an occluded RCA - Cardiology discussed with patient potential intervention including open heart surgery vs. medical management vs. PCI intervention - Discontinue plavix and add norvasc - 2D echocardiogram - Lovenox - Lipitor 80mg - Aspirin 365 - Valsartan 320mg - Norvasc - Lasix 20mg 2. Hypertension - History of hypertension - Patient BP this AM is 156/57 - Continue to monitor closely - Increase Valsartan to 320mg - Hydralazine IVP 10 mg with goal of SBP <160 3. Hx of CHF - 2d echocardiogram showing evidence of biatrial enlargement with normal left ventricular size and systolic function 4. GI/DVT pps - Protonix 40mg - Lovenox dispo: Discuss with patient what medical intervention she would like to pursue in regards to most recent cath findings to determine appropriate action. <Beverly Haley - Last Filed: 06/10/17 07:49> Objective - Vital Signs/Intake and Output Vital Signs (last 24 hours): Temp Pulse Resp BP Pulse Ox 98.9 F 65 20 184/60 H 98 06/10/17 05:37 06/10/17 05:37 06/10/17 05:37 06/10/17 05:37 06/10/17 05:37 Intake and Output: 06/10/17 06/10/17 06:59 18:59 Intake Total 1360 Output Total 4 Balance 1356 - Medications Medications: Current Medications Amlodipine Besylate (Norvasc) 5 mg PO DAILY [facility] Last Admin: 06/09/17 10:35 Dose: 5 mg Aspirin (Ecotrin) 81 mg PO DAILY [facility] Last Admin: 06/09/17 10:30 Dose: Not Given Atorvastatin Calcium (Lipitor) 80 mg PO DIN [facility] Last Admin: 06/09/17 18:06 Dose: 80 mg Furosemide (Lasix) 20 mg PO DAILY [facility] Last Admin: 06/09/17 10:34 Dose: 20 mg Home Med (Home Med) 0 unit OU BID [facility] Last Admin: 06/09/17 21:39 Dose: 1 unit Hydralazine HCl (Apresoline) 10 mg IVP Q6 PRN PRN Reason: Systolic Blood Pressure Last Admin: 06/10/17 05:25 Dose: 10 mg Latanoprost (Xalatan Opht) 0 ml OU DAILY [facility] Last Admin: 06/09/17 10:36 Dose: 2.5 ml Metoprolol Tartrate (Lopressor) 50 mg PO BID [facility] Last Admin: 06/09/17 18:05 Dose: 50 mg Morphine Sulfate (Morphine) 1 mg IVP Q4H PRN PRN Reason: Pain, Mild (1-3) Pantoprazole Sodium (Protonix Ec Tab) 40 mg PO 0600,1600 [facility] Last Admin: 06/10/17 05:19 Dose: 40 mg Valsartan (Diovan) 320 mg PO DAILY [facility] Last Admin: 06/09/17 10:29 Dose: Not Given - Labs Labs: 06/10/17 05:45 06/09/17 11:00 PT 10.9 Seconds (9.9-11.8) 06/07/17 12:45 INR 1.01 (0.93-1.08) 06/07/17 12:45 APTT 23.6 Seconds (23.7-30.8) L 06/07/17 12:45 Attending/Attestation - Attestation I have personally seen and examined this patient.: Yes I have fully participated in the care of the patient.: Yes I have reviewed all pertinent clinical information, including history, physical exam and plan: Yes Notes (Text): 06/10/17 07:48 attending note; Patient seen and examined with resident. Patient is a 87-year-old female with a past medical history of hypertension, hypercholesemia, CAD with stent placement is admitted with shortness of breath and chest discomfort. acute non-ST elevation MS; continue aspirin, Plavix, Lipitor, metoprolol. Troponin is trending down. Cardiac Revealed 90% left main disease. Case discussed with cardiology Dr. Siegel in detail. Cardiology to discuss options including CABG versus PCI. monitor patient closely. Upon discharge the patient will follow up with PMD .
[2017-06-09] MEDS: Pantoprazole 40 mg EC Tab PO SCH ×2 (06:25→16:02)
[2017-06-09] MEDS ORDERED: Lidocaine 2% Inj (20ml) ONE (06:32)
[2017-06-09] MEDS ORDERED: Phenylephrine 10 mg/ml Inj ONE (06:32)
[2017-06-09] MEDS ORDERED: Iodixanol 320 MG/ML 100 ML BOTTLE IV ONE (06:32)
[2017-06-09] MEDS ORDERED: Iohexol 350mgl/ml 50 ML ONE (06:32)
[2017-06-09] MEDS ORDERED: Nitroglycerin 50mg in D5W 0 MG/0 ML BOTTLE IV ONE (06:33)
[2017-06-09] MEDS ORDERED: Iodixanol 320 MG/ML 200 ML BOTTLE IV ONE (06:33)
[2017-06-09] MEDS ORDERED: Midazolam 2 MG/2 ML VIAL ONE ×2 (07:05→08:03)
[2017-06-09] MEDS ORDERED: Sodium Chloride 0.9% 1,000 ML IV SCH (08:30)
[2017-06-09] MEDS: EYE OU SCH ×2 (10:34→21:39)
[2017-06-09] MEDS: ALPHAGAN 0.1% OU SCH ×2 (10:34→21:39)
[2017-06-09] MEDS: Latanoprost 2.5 ml Opht Soln OU SCH (10:36)
[2017-06-09 11:41] LABS: BLOOD UREA NITROGEN 23 mg/dL (7-21); CALCIUM 9.4 mg/dL (8.4-10.5); GFR AFRICAN-AMERICAN > 60; GFR NON-AFRICAN AMERICAN 59
[2017-06-09 11:43] LABS: BASO # 0.03 K/mm3 (0.0-2.0); BASO % 0.4 % (0.0-3.0); EOS # 0.1 (0.0-0.7); EOS % 1.5 % (1.5-5.0); GRAN # 3.88 (1.4-6.5); GRAN % 57.9 % (50.0-68.0); HEMOGLOBIN 11.3 gm/dL (12.0-16.0); LYMPH # 1.9 (1.2-3.4); LYMPH % 28.3 % (22.0-35.0); MEAN CELL VOLUME 83.5 fL (80.0-105.0); MEAN CORPUSCULAR HGB CONC 32.4 g/dl (31.0-37.0); MEAN PLATELET VOLUME 11.9 fl (7.0-11.0); MONO # 0.8 (0.1-0.6); MONO % 11.9 % (1.0-6.0); PLATELET COUNT 170 10^3/uL (120.0-450.0); RBC 4.18 10^6/uL (3.5-6.1); RED CELL DISTRIBUTION WIDTH 15.3 % (11.5-14.5); WHITE BLOOD COUNT 6.7 10^3/ul (4.5-11.0)
--- NOTE | 2017-06-09 13:49 | PN ---
DATE: 06/09/2017 SUBJECTIVE: The patient is seen lying bed on telemetry. She underwent cardiac catheterization earlier today. She was found to have severe ostial left main disease as well as an occluded RCA. The circumflex and stents were patent. Her left ventricular function appeared mildly reduced. CURRENT MEDICATIONS: Include hydralazine IV p.r.n., Diovan 320 mg daily, Ecotrin 81 mg daily, Lasix 20 mg daily, Lipitor 80 mg daily, metoprolol 50 mg b.i.d., Norvasc 5 mg daily, Protonix 40 mg daily, and eye drops. OBJECTIVE: GENERAL: She is a very elderly woman, who appears comfortable at rest. VITAL SIGNS: Her blood pressure is 150/50 with pulse of 60 and sinus, respirations are 16. She is afebrile. HEENT: No JVD. CHEST: Few scattered rhonchi heard. HEART: PMI displaced laterally with systolic murmur at the bases as well as at the lower left sternal border. ABDOMEN: Soft, nontender with normoactive bowel sounds. EXTREMITIES: No edema. DIAGNOSTIC DATA: Echocardiogram was reviewed and shows evidence of biatrial enlargement with normal left ventricular size and systolic function, [id number] concentric LVH, mild aortic stenosis, and moderate mitral and tricuspid regurgitation. Of note, there was no significant aortic valve gradient noted at the time of catheterization. Recent blood work revealed hemoglobin and hematocrit of 10.3 and 31.7 with a white count of 7.3, platelet count is 172,000. Potassium 3.8, BUN and creatinine 22 and 0.8. Peak troponin was 4.37. IMPRESSION: 1. Recent [id number] elevation myocardial infarction with severe ostial left main disease. 2. Preserved left ventricular systolic function. 3. Moderate mitral and tricuspid regurgitation. 4. Mild anemia. RECOMMENDATIONS: Management of her coronary artery disease is somewhat difficult given her advanced age; however, her general condition is fairly good. Her main limiting medical problem at the present time is severe spinal stenosis, which may hamper her recovery from bypass surgery should this be performed. The options of bypass surgery versus conservative medical therapy verses possible left main PCI with hemodynamic support can be presented to her. The likelihood of a good result from PCI with a low complication rate is not entirely good given the degree of calcification of the ostium of the vessel. All of the above was discussed in detail with the patient as well as Dr. Rider. She is contemplating possible surgery. In the interim, her Plavix will be discontinued and Norvasc added for angina control and blood pressure control. We will continue to follow and make further recommendations as appropriate. Ashok Hickman MD MTDD
--- NOTE | 2017-06-09 14:57 | CARDCATH ---
PROCEDURE DATE: 06/09/2017 PROCEDURES: 1. Left and right coronary angiography. 2. Left ventriculography. 3. Right femoral arteriography. 4. Mynx deployment. HISTORY: This is an 87-year-old woman with known coronary artery disease who was admitted with non-ST segment elevation myocardial infarction and cardiac catheterization was advised. FINDINGS: Hemodynamics; the aortic pressure was 200/102 with left ventricular pressure of 200/18. CORONARY ANATOMY: 1. The ostium of the left vein was heavily calcified. There was a 90% ostial stenosis present. 2. Left anterior ascending artery had moderate calcification with mild diffuse irregularities. The diagonal branches had mild disease as well. 3. The left circumflex artery had a widely patent stents in the proximal and mid portion. 4. The right coronary artery also had heavy ostial calcification and was occluded proximally. Left to right collaterals were seen. LEFT VENTRICULOGRAPHY: A left ventriculogram was performed with hand injection only in the HECK projection. There was mild inferolateral hypokinesis with an overall ejection fraction of 50%. Mitral regurgitation was not assessed. There was no aortic valve gradient noted on catheter pullback. RIGHT FEMORAL ARTERIOGRAPHY: A right femoral arteriogram revealed no evidence of significant disease. The puncture site appeared to be at the bifurcation of the SFA and profunda branches. The puncture site was then closed with deployment of a Mynx device. CONCLUSION: 1. Severe ostial left main disease. 2. Patent circumflex artery stents. 3. Occluded proximal RCA with left to right collaterals. 4. Preserved LV function. RECOMMENDATIONS: The options of coronary bypass surgery will be presented to her as well as the possibility of high risk left main PCI. The alternative of intensified medical therapy will be reviewed as well. Ashok Hickman MD cc: Timmy Rider MD MTDD
[2017-06-10] MEDS: Pantoprazole 40 mg EC Tab PO SCH ×2 (05:19→16:18)
[2017-06-10 06:23] LABS: BASO # 0.02 K/mm3 (0.0-2.0); BASO % 0.2 % (0.0-3.0); EOS # 0.1 (0.0-0.7); EOS % 1.3 % (1.5-5.0); GRAN % 57.2 % (50.0-68.0); HEMOGLOBIN 11.3 gm/dL (12.0-16.0); LYMPH % 29.2 % (22.0-35.0); MEAN CELL VOLUME 82.1 fL (80.0-105.0); MEAN CORPUSCULAR HGB CONC 32.9 g/dl (31.0-37.0); MEAN PLATELET VOLUME 11.2 fl (7.0-11.0); MONO # 1.2 (0.1-0.6); MONO % 12.1 % (1.0-6.0); PLATELET COUNT 174 10^3/uL (120.0-450.0); RBC 4.18 10^6/uL (3.5-6.1); RED CELL DISTRIBUTION WIDTH 15.1 % (11.5-14.5); WHITE BLOOD COUNT 10.1 10^3/ul (4.5-11.0)
--- NOTE | 2017-06-10 08:21 | CP.PCM.PN ---
Subjective - Date & Time of Evaluation Date of Evaluation: 06/10/17 Time of Evaluation: 07:00 - Subjective Subjective: Stable on 2R. S/P cath yesterday> severe calcified LM stenosis with occluded RCA and patent CA stent, NL LV fx. Case D/W Dr. Hickman. CABG being considered. NO CP or SOB. V/S noted. PE: Lungs: clear Cor.: S1S2 Abd.: soft Ext.: no edema. Groin OK Neuro.: alert Labs: CBC OK Objective - Vital Signs/Intake and Output Vital Signs (last 24 hours): Temp Pulse Resp BP Pulse Ox 98.9 F 65 20 184/60 H 98 06/10/17 05:37 06/10/17 05:37 06/10/17 05:37 06/10/17 05:37 06/10/17 05:37 Intake and Output: 06/10/17 06/10/17 06:59 18:59 Intake Total 1360 Output Total 4 Balance 1356 - Medications Medications: Current Medications Amlodipine Besylate (Norvasc) 5 mg PO DAILY [facility] Last Admin: 06/09/17 10:35 Dose: 5 mg Aspirin (Ecotrin) 81 mg PO DAILY [facility] Last Admin: 06/09/17 10:30 Dose: Not Given Atorvastatin Calcium (Lipitor) 80 mg PO DIN [facility] Last Admin: 06/09/17 18:06 Dose: 80 mg Furosemide (Lasix) 20 mg PO DAILY [facility] Last Admin: 06/09/17 10:34 Dose: 20 mg Home Med (Home Med) 0 unit OU BID [facility] Last Admin: 06/09/17 21:39 Dose: 1 unit Hydralazine HCl (Apresoline) 10 mg IVP Q6 PRN PRN Reason: Systolic Blood Pressure Last Admin: 06/10/17 05:25 Dose: 10 mg Latanoprost (Xalatan Opht) 0 ml OU DAILY [facility] Last Admin: 06/09/17 10:36 Dose: 2.5 ml Metoprolol Tartrate (Lopressor) 50 mg PO BID [facility] Last Admin: 06/09/17 18:05 Dose: 50 mg Morphine Sulfate (Morphine) 1 mg IVP Q4H PRN PRN Reason: Pain, Mild (1-3) Pantoprazole Sodium (Protonix Ec Tab) 40 mg PO 0600,1600 [facility] Last Admin: 06/10/17 05:19 Dose: 40 mg Valsartan (Diovan) 320 mg PO DAILY [facility] Last Admin: 06/09/17 10:29 Dose: Not Given - Labs Labs: 06/10/17 05:45 06/09/17 11:00 PT 10.9 Seconds (9.9-11.8) 06/07/17 12:45 INR 1.01 (0.93-1.08) 06/07/17 12:45 APTT 23.6 Seconds (23.7-30.8) L 06/07/17 12:45 Assessment and Plan - Assessment and Plan (Free Text) Assessment: Weak/Diaphoresis/Near Syncope/NSTEMI Severe CAD with 90% LM stenosis and 100% RCA, patent CA stent and NL LV( on echo ) LBBB HBP HLD Spinal Stenosis Glaucoma Plan: Patient considering CABG vs. medical therapy. LM PCI does not appear to be a good option b/o calcification of the LM ostium, etc. D/C Plavix Check carotid U/S pre-op if she elects CABG. Would transfer to [facility] for CABG if she agrees. Given severe LM stenosis I would tolerate some higher BPs rather than aggressively controlling her BP. Continue current regimen.
[2017-06-10] MEDS: ALPHAGAN 0.1% OU SCH (10:01)
[2017-06-10] MEDS: EYE OU SCH (10:01)
[2017-06-10] MEDS: Latanoprost 2.5 ml Opht Soln OU SCH (10:01)
--- NOTE | 2017-06-10 11:14 | CP.PCM.PN ---
<Jessica Zuniga - Last Filed: 06/10/17 15:45> Subjective - Date & Time of Evaluation Date of Evaluation: 06/10/17 Time of Evaluation: 08:45 - Subjective Subjective: Internal medicine progress note for Dr. Pemberton-Jessica Zuniga, PGY-1 Pt S & E at bedside. Pt reports no problems overnight, is currently w/o complaints. Pt had conversation with Dr. Martel regarding surgical intervention for cardiac condition, is currently amenable to intervention. Denies N/V/F/C, SOB, CP, palpitations, ab pain. Tolerating diet. Objective - Vital Signs/Intake and Output Vital Signs (last 24 hours): Temp Pulse Resp BP Pulse Ox 98.9 F 91 H 20 164/52 H 98 06/10/17 05:37 06/10/17 10:02 06/10/17 05:37 06/10/17 10:02 06/10/17 05:37 Intake and Output: 06/10/17 06/10/17 06:59 18:59 Intake Total 1360 Output Total 4 Balance 1356 - Medications Medications: Current Medications Amlodipine Besylate (Norvasc) 5 mg PO DAILY [facility] Last Admin: 06/10/17 10:00 Dose: 5 mg Aspirin (Ecotrin) 81 mg PO DAILY [facility] Last Admin: 06/10/17 10:02 Dose: 81 mg Atorvastatin Calcium (Lipitor) 80 mg PO DIN [facility] Last Admin: 06/09/17 18:06 Dose: 80 mg Furosemide (Lasix) 20 mg PO DAILY [facility] Last Admin: 06/10/17 10:01 Dose: 20 mg Home Med (Home Med) 0 unit OU BID [facility] Last Admin: 06/10/17 10:01 Dose: 1 unit Hydralazine HCl (Apresoline) 10 mg IVP Q6 PRN PRN Reason: Systolic Blood Pressure Last Admin: 06/10/17 05:25 Dose: 10 mg Latanoprost (Xalatan Opht) 0 ml OU DAILY [facility] Last Admin: 06/10/17 10:01 Dose: 2.5 ml Metoprolol Tartrate (Lopressor) 50 mg PO BID [facility] Last Admin: 06/10/17 10:02 Dose: 50 mg Morphine Sulfate (Morphine) 1 mg IVP Q4H PRN PRN Reason: Pain, Mild (1-3) Pantoprazole Sodium (Protonix Ec Tab) 40 mg PO 0600,1600 [facility] Last Admin: 06/10/17 05:19 Dose: 40 mg Valsartan (Diovan) 320 mg PO DAILY [facility] Last Admin: 06/10/17 10:02 Dose: 320 mg - Labs Labs: 06/10/17 05:45 06/09/17 11:00 PT 10.9 Seconds (9.9-11.8) 06/07/17 12:45 INR 1.01 (0.93-1.08) 06/07/17 12:45 APTT 23.6 Seconds (23.7-30.8) L 06/07/17 12:45 - Constitutional Appears: Non-toxic, No Acute Distress - Head Exam Head Exam: ATRAUMATIC, NORMAL INSPECTION, NORMOCEPHALIC - Eye Exam Eye Exam: EOMI, Normal appearance - ENT Exam ENT Exam: Mucous Membranes Moist, Normal Exam - Neck Exam Neck Exam: Full ROM, Normal Inspection - Respiratory Exam Respiratory Exam: Clear to Ausculation Bilateral, NORMAL BREATHING PATTERN - Cardiovascular Exam Cardiovascular Exam: REGULAR RHYTHM, +S1, +S2 - GI/Abdominal Exam GI & Abdominal Exam: Soft, Normal Bowel Sounds. absent: Distended - Extremities Exam Extremities Exam: Normal Inspection. absent: Pedal Edema - Neurological Exam Neurological Exam: Alert, Awake, CN II-XII Intact, Oriented x3 - Psychiatric Exam Psychiatric exam: Normal Affect, Normal Mood - Skin Skin Exam: Dry, Intact, Normal Color, Warm Assessment and Plan - Assessment and Plan (Free Text) Assessment: 87 yo F w/PMH sig for HTN, CAD s/p 1 stent, HLD, POD#1 s/p cardiac cath w/ findings positive for L main disease, occluded RCA. Plan: NSTEMI POD#1 s/p cardiac cath Findings positive for severe ostial L main disease, RCA occluded Lovenox Norvasc ASA Lipitor Valsartan Lasix HTN BP 164/52 Valsartan Hydralazine Monitor Hx CHF Echo w/biatrial enlargement, mild-mod LVH, mild , mod MR, mod TR Dispo Plan for possible CABG- awaiting information from cardio DW attending Nadia, PGY-1 <Beverly Haley - Last Filed: 06/10/17 16:35> Objective - Vital Signs/Intake and Output Vital Signs (last 24 hours): Temp Pulse Resp BP Pulse Ox 98.6 F 62 72 H 148/58 L 98 06/10/17 16:33 06/10/17 16:33 06/10/17 16:33 06/10/17 16:33 06/10/17 05:37 Intake and Output: 06/10/17 06/10/17 06:59 18:59 Intake Total 1360 Output Total 4 Balance 1356 - Medications Medications: Current Medications Amlodipine Besylate (Norvasc) 5 mg PO DAILY [facility] Last Admin: 06/10/17 10:00 Dose: 5 mg Aspirin (Ecotrin) 81 mg PO DAILY [facility] Last Admin: 06/10/17 10:02 Dose: 81 mg Atorvastatin Calcium (Lipitor) 80 mg PO DIN [facility] Last Admin: 06/09/17 18:06 Dose: 80 mg Furosemide (Lasix) 20 mg PO DAILY [facility] Last Admin: 06/10/17 10:01 Dose: 20 mg Home Med (Home Med) 0 unit OU BID [facility] Last Admin: 06/10/17 10:01 Dose: 1 unit Hydralazine HCl (Apresoline) 10 mg IVP Q6 PRN PRN Reason: Systolic Blood Pressure Last Admin: 06/10/17 15:41 Dose: 10 mg Latanoprost (Xalatan Opht) 0 ml OU DAILY [facility] Last Admin: 06/10/17 10:01 Dose: 2.5 ml Metoprolol Tartrate (Lopressor) 50 mg PO BID [facility] Last Admin: 06/10/17 10:02 Dose: 50 mg Morphine Sulfate (Morphine) 1 mg IVP Q4H PRN PRN Reason: Pain, Mild (1-3) Pantoprazole Sodium (Protonix Ec Tab) 40 mg PO 0600,1600 [facility] Last Admin: 06/10/17 16:18 Dose: 40 mg Valsartan (Diovan) 320 mg PO DAILY [facility] Last Admin: 06/10/17 10:02 Dose: 320 mg - Labs Labs: 06/10/17 05:45 06/09/17 11:00 PT 10.9 Seconds (9.9-11.8) 06/07/17 12:45 INR 1.01 (0.93-1.08) 06/07/17 12:45 APTT 23.6 Seconds (23.7-30.8) L 06/07/17 12:45 Attending/Attestation - Attestation I have personally seen and examined this patient.: Yes I have fully participated in the care of the patient.: Yes I have reviewed all pertinent clinical information, including history, physical exam and plan: Yes Notes (Text): 06/10/17 16:35 attending note; Patient seen and examined with resident. Patient is a 87-year-old female with a past medical history of hypertension, hypercholesemia, CAD with stent placement is admitted with shortness of breath and chest discomfort. acute non-ST elevation TN; continue aspirin, Lipitor, metoprolol. Troponin is trending down. Cardiac Revealed 90% left main disease. Case discussed with cardiology in detail. Cardiology to discuss options including CABG versus PCI. monitor patient closely. Upon discharge the patient will follow up with PMD .
[2017-06-11] MEDS: Pantoprazole 40 mg EC Tab PO SCH ×2 (06:00→16:35)
--- NOTE | 2017-06-11 07:48 | CP.PCM.PN ---
Subjective - Date & Time of Evaluation Date of Evaluation: 06/11/17 Time of Evaluation: 07:00 - Subjective Subjective: Stable on 2R. She is leaning toward CABG. We have had discussions and she has also spoken to Dr. Rider who visited her yesterday. NO CP or SOB. V/S noted. PE: Lungs: clear Cor.: S1S2 Abd.: soft Ext.: no edema. Groin OK Neuro.: alert Labs 06/10: CBC OK Objective - Vital Signs/Intake and Output Vital Signs (last 24 hours): Temp Pulse Resp BP Pulse Ox 98.3 F 64 20 175/65 H 98 06/11/17 06:00 06/11/17 06:00 06/11/17 06:00 06/11/17 06:00 06/11/17 06:00 - Medications Medications: Current Medications Amlodipine Besylate (Norvasc) 5 mg PO BID [facility] Aspirin (Ecotrin) 81 mg PO DAILY [facility] Last Admin: 06/10/17 10:02 Dose: 81 mg Atorvastatin Calcium (Lipitor) 80 mg PO DIN [facility] Last Admin: 06/10/17 17:43 Dose: 80 mg Furosemide (Lasix) 20 mg PO DAILY [facility] Last Admin: 06/10/17 10:01 Dose: 20 mg Home Med (Home Med) 0 unit OU BID [facility] Last Admin: 06/10/17 10:01 Dose: 1 unit Latanoprost (Xalatan Opht) 0 ml OU DAILY [facility] Last Admin: 06/10/17 10:01 Dose: 2.5 ml Metoprolol Tartrate (Lopressor) 50 mg PO BID [facility] Last Admin: 06/10/17 17:43 Dose: 50 mg Pantoprazole Sodium (Protonix Ec Tab) 40 mg PO 0600,1600 [facility] Last Admin: 06/11/17 06:00 Dose: 40 mg Valsartan (Diovan) 320 mg PO DAILY [facility] Last Admin: 06/10/17 10:02 Dose: 320 mg - Labs Labs: 06/10/17 05:45 06/09/17 11:00 PT 10.9 Seconds (9.9-11.8) 06/07/17 12:45 INR 1.01 (0.93-1.08) 06/07/17 12:45 APTT 23.6 Seconds (23.7-30.8) L 06/07/17 12:45 Assessment and Plan - Assessment and Plan (Free Text) Assessment: Weak/Diaphoresis/Near Syncope/NSTEMI Severe CAD with 90% ostial LM stenosis and 100% RCA, patent CA stent and NL LV( on echo) LBBB HBP HLD Spinal Stenosis Glaucoma Plan: Patient considering CABG vs. medical therapy. LM PCI does not appear to be a good option b/o calcification of the LM ostium, etc. D/C Plavix Increase amlodipine to 5 BID Await carotid U/S report. Will transfer to [facility] for CABG early next week. Given severe LM stenosis I would tolerate some higher BPs rather than aggressively controlling her BP.
[2017-06-11 09:04] LABS: BASO # 0.02 K/mm3 (0.0-2.0); BASO % 0.2 % (0.0-3.0); EOS # 0.1 (0.0-0.7); EOS % 0.5 % (1.5-5.0); GRAN # 7.85 (1.4-6.5); HEMOGLOBIN 11.3 gm/dL (12.0-16.0); LYMPH # 1.7 (1.2-3.4); LYMPH % 15.8 % (22.0-35.0); MEAN CELL VOLUME 82.3 fL (80.0-105.0); MEAN CORPUSCULAR HGB CONC 32.8 g/dl (31.0-37.0); MEAN PLATELET VOLUME 11.7 fl (7.0-11.0); MONO # 0.9 (0.1-0.6); MONO % 8.5 % (1.0-6.0); PLATELET COUNT 183 10^3/uL (120.0-450.0); RBC 4.19 10^6/uL (3.5-6.1); RED CELL DISTRIBUTION WIDTH 15.1 % (11.5-14.5); WHITE BLOOD COUNT 10.5 10^3/ul (4.5-11.0)
[2017-06-11] MEDS: Latanoprost 2.5 ml Opht Soln OU SCH ×2 (09:44→09:45)
[2017-06-11] MEDS: ALPHAGAN 0.1% OU SCH ×3 (09:44→17:12)
[2017-06-11] MEDS: EYE OU SCH ×3 (09:44→17:12)
--- NOTE | 2017-06-11 13:49 | US ---
PROCEDURE: Bilateral carotid artery duplex ultrasound HISTORY: Carotid stenosis PHYSICIAN(S): Hector Cherry MD. TECHNIQUE: Duplex sonography and color-flow Doppler were used to evaluate the carotid bifurcations and limited segments of the vertebral arteries bilaterally. FINDINGS: There is diffuse mildly regular heterogeneous echogenic plaque noted bilaterally. The peak systolic velocity in the proximal right internal carotid artery is 121 cm/sec. This corresponds to a 40-59 percent proximal right ICA stenosis. Normal systolic velocities are noted in the proximal right external carotid artery. There is antegrade flow in the right vertebral artery. The peak systolic velocity in the proximal left internal carotid artery is 95 cm/sec. This corresponds to a 20 to 39% proximal left ICA stenosis. Normal systolic velocities are noted in the proximal left external carotid artery. There is antegrade flow in the left vertebral artery. IMPRESSION: 1. 40-59 percent proximal right ICA stenosis 2. 20-39 percent proximal left ICA stenosis 3. Antegrade flow in both vertebral arteries.
[2017-06-11 15:03] VITALS: O2SAT 97
[2017-06-11 17:08] VITALS: BP 173/58; PULSE 70; RESP 19; TEMP 98
== END 2017-06-11 19:24 | DRG 281 ==
LOC: ED 12:04 → ERH 15:37 → 2RSO 18:25
PROVIDERS: ADMIT Internal Medicine; ATTEND Internal Medicine
PROC: 4A023N7 Measurement of Cardiac Sampling and Pressure, Left Heart, Percutaneous Approach (ICD-10-PCS; principal; 2017-06-09)
PROC: B211YZZ Fluoroscopy of Multiple Coronary Arteries using Other Contrast (ICD-10-PCS; 2017-06-09)
PROC: B215YZZ Fluoroscopy of Left Heart using Other Contrast (ICD-10-PCS; 2017-06-09)
DX: I21.4 Non-ST elevation (NSTEMI) myocardial infarction (principal); I16.1 Hypertensive emergency; I25.10 Atherosclerotic heart disease of native coronary artery without angina pectoris; I50.9 Heart failure, unspecified; D64.9 Anemia, unspecified; I11.0 Hypertensive heart disease with heart failure; I44.7 Left bundle-branch block, unspecified; E78.5 Hyperlipidemia, unspecified; I08.1 Rheumatic disorders of both mitral and tricuspid valves; M48.00 Spinal stenosis, site unspecified; H40.9 Unspecified glaucoma; Z95.5 Presence of coronary angioplasty implant and graft; Z82.49 Family history of ischemic heart disease and other diseases of the circulatory system

== ENCOUNTER 2017-06-11 19:04 | Inpatient (IN) | payer OTHER, MEDICARE ==
[2017-06-12] MEDS: Pantoprazole 40 mg EC Tab PO SCH ×2 (05:48→18:02)
--- NOTE | 2017-06-12 07:52 | CP.PCM.PN ---
Subjective - Date & Time of Evaluation Date of Evaluation: 06/12/17 Time of Evaluation: 07:00 - Subjective Subjective: Stable in TCU now. awaits bed at [facility] for CABG early next week. No CP or SOB. + chronic back stiffness. V/S noted. PE: Lungs: clear Cor.: S1S2 Abd.: soft Ext.: no edema Neuro.: alert Car U/S noted: moderate/mild Objective - Vital Signs/Intake and Output Vital Signs (last 24 hours): Temp Pulse Resp BP Pulse Ox 97.3 F L 64 16 137/44 L 95 06/12/17 05:41 06/12/17 05:41 06/12/17 05:41 06/12/17 05:41 06/12/17 05:41 - Medications Medications: Current Medications Amlodipine Besylate (Norvasc) 5 mg PO BID [facility] Aspirin (Ecotrin) 81 mg PO 0800 [facility] Atorvastatin Calcium (Lipitor) 80 mg PO DIN [place] Furosemide (Lasix) 20 mg PO DAILY [facility] Home Med (Home Med) 0 unit OU BID [facility] Hydralazine HCl (Apresoline) 25 mg PO QID [facility] Last Admin: 06/11/17 21:36 Dose: Not Given Latanoprost (Xalatan Opht) 0 ml OU DAILY [facility] Metoprolol Tartrate (Lopressor) 50 mg PO BID [facility] Pantoprazole Sodium (Protonix Ec Tab) 40 mg PO 0600,1600 [facility] Last Admin: 06/12/17 05:48 Dose: 40 mg Valsartan (Diovan) 320 mg PO DAILY [facility] Assessment and Plan - Assessment and Plan (Free Text) Assessment: Weakness/diaphoresis/near syncope/NSTEMI Severe CAD with 90 % ostial LM stenosis, occluded RCA and patent CA stent with NL LV function by echo. HBP LBBB HLD Spinal stenosis Glaucoma Plan: Tylenol for back pain. Transfer to [facility], Dr. Hammond, when bed available. Continue current meds.
[2017-06-12] MEDS ORDERED: Latanoprost 2.5 ml Opht Soln OU SCH (10:00)
[2017-06-12 10:46] VITALS: RESP 18
[2017-06-12] MEDS: ALPHAGAN 0.1% OU SCH ×2 (11:03→18:09)
--- NOTE | 2017-06-12 13:19 | CP.PCM.HP ---
<Edward Norman - Last Filed: 06/12/17 14:31> History of Present Illness - History of Present Illness History of Present Illness: Patient is an 87 year old female with a PMH of hypertension, HLD, CAD stent x1 , and spinal stenosis who presents to the emergency department with complaints of general fatigue and lightheadedness. Patient was admitted to [facility] for chest pain rule out. She was seen by Dr. Martel with cardiology and evaluated with a [facility] which showed 90% blockage of the left main artery and complete occlusion of the RCA. The patient was advised on her options of medical therapy vs. PCI vs. CABG. The patient is being scheduled for CABG at [facility] in the coming week. The patient was placed in the TCU for minimal physical therapy and observation while awaiting placement. Patient denies chest pain, shortness of breath, nausea , vomiting, fever, and abdominal pain. PMH: hypertension, HLD, CAD, intermittent nausea, and spinal stenosis PSH: cardiac stent 13 years ago, cataracts, left foot hammer-toe repair Allergies: denies FMH: father- [place] Social: denies smoking and alcohol use Meds: see MAR Present on Admission - Present on Admission Any Indicators Present on Admission: No History of DVT/PE: No History of Uncontrolled Diabetes: No Urinary Catheter: No Review of Systems - Constitutional Constitutional: As Per HPI. absent: Fever, Headache - EENT Eyes: As Per HPI - Cardiovascular Cardiovascular: As Per HPI. absent: Chest Pain - Respiratory Respiratory: As Per HPI - Gastrointestinal Gastrointestinal: As Per HPI - Genitourinary Genitourinary: As Per HPI - Musculoskeletal Musculoskeletal: As Per HPI - Integumentary Integumentary: As Per HPI - Neurological Neurological: As Per HPI - Psychiatric Psychiatric: As Per HPI - Hematologic/Lymphatic Hematologic: As Per HPI Past Patient History - Infectious Disease Hx of Infectious Diseases: None - Past Social History Smoking Status: Never Smoked Alcohol: None Drugs: Denies - CARDIAC Hx Hypertension: Yes - PULMONARY Hx Pneumonia: Yes - NEUROLOGICAL Hx Neurological Disorder: No - HEENT Hx HEENT Problems: Yes (Far-sided; Reading glasses) Hx Glaucoma: Yes - RENAL Hx Chronic Kidney Disease: No - ENDOCRINE/METABOLIC Hx Endocrine Disorders: No - HEMATOLOGICAL/ONCOLOGICAL Hx Blood Disorders: No - INTEGUMENTARY Hx Dermatological Problems: No - MUSCULOSKELETAL/RHEUMATOLOGICAL Hx Falls: Yes - GASTROINTESTINAL Hx Gastrointestinal Disorders: No - GENITOURINARY/GYNECOLOGICAL Hx Genitourinary Disorders: No - PSYCHIATRIC Hx Psychophysiologic Disorder: No - SURGICAL HISTORY Hx Surgeries: No - ANESTHESIA Hx Anesthesia: Yes Hx Anesthesia Reactions: No Hx Malignant Hyperthermia: No Meds Allergies/Adverse Reactions: Allergies Allergy/AdvReac Type Severity Reaction Status Date / Time No Known Allergies Allergy Verified 06/11/17 20:15 Physical Exam - Additional Findings Additional findings: Vital Signs as below Constitutional: a&o x 4 Head and Neck: neck supple, no jvd, trachea midline, carotid midline, no cervical/head mass Eyes: joel, nonicteric sclera, eom intact ENT: auditory acuity grossly intact, throat not congested, no nasal deformity Cardio: rrr, no m/r/g, no carotid bruit, nml s1, s2 Pulm: no accessory muscle use, equal nml breath sounds bilaterally, ctab Abd: s/nt/nd, nbs x 4 q, no palpable masses Derm: no rashes, no ulcers, dressing over femoral cath site c/d/i Extr: 2+ pitting edema, no cyanosis, no calf tenderness, no lesions Neuro: cn II-XII grossly intact, ue and le 5/5 muscle strength bilaterally, no los ue, le bilaterally and core Results - Vital Signs Recent Vital Signs: Last Vital Signs Temp 97.8 F 06/12/17 10:00 Pulse 77 06/12/17 11:04 Resp 18 06/12/17 10:00 BP 143/60 06/12/17 11:13 Pulse Ox 95 06/12/17 10:00 Assessment & Plan - Assessment and Plan (Free Text) Assessment: Patient is a 87 year old female with past medical history of CAD s/p stent, CHF , spinal stenosis, glaucoma, HLD, and HTN with evidence of significant stenosis of her left main coronary artery and complete occlusion of her right coronary artery who requires limited physical therapy while awaiting CABG scheduled at [facility] in the coming days Plan: 1. NSTEMI - Patient admitted on 06/07 and managed for NSTEMI - [facility] evidence of 90% stenosis of Left main and total occlusion of RCA - Cardiology consulted and following - Plan to have CABG at [facility] - TCU for monitoring and evaluation 2. HTN - Valsartan, Hydralazine, Metoprolol Tartate - monitor 3. Hx of CHF - Echo showing biatrial enlargement, mild-mod LVH, mild , mod MR, mod TR dispo: Patient awaiting CABG at [facility] - Date & Time Date: 06/12/17 Time: 13:28 <Beverly Haley - Last Filed: 06/12/17 16:30> Results - Vital Signs Recent Vital Signs: Last Vital Signs Temp 97.9 F 06/12/17 16:00 Pulse 63 06/12/17 16:00 Resp 18 06/12/17 16:00 BP 145/54 L 06/12/17 16:00 Pulse Ox 96 06/12/17 16:00 Attending/Attestation - Attestation I have personally seen and examined this patient.: Yes I have fully participated in the care of the patient.: Yes I have reviewed all pertinent clinical information: Yes Notes (Text): 06/12/17 16:28 attending note; Patient seen and examined with resident in TCU. Patient is a 87-year-old female with a past medical history of hypertension, hypercholesemia, CAD with stent placement is admitted with shortness of breath and chest discomfort. s/pacute non-ST elevation [place]; continue aspirin, Lipitor, metoprolol, Diovan. Cardiac Revealed 90% left main disease. awaiting for a bed in [facility] under Dr. Hightower's care for CABG. Cardiology evaluation appreciated. Upon discharge the patient will follow up with PMD . 06/12/17 16:28 06/12/17 16:29
--- NOTE | 2017-06-12 14:48 | CP.PCM.DIS ---
Provider - Provider Date of Admission: 06/07/17 19:04 Attending physician: Pete Hitchcock MD Primary care physician: Timmy Rider MD Consults: Cardiology: Josue Martel MD Time Spent in preparation of Discharge (in minutes): 30 Diagnosis - Discharge Diagnosis (1) NSTEMI (non-ST elevated myocardial infarction) Status: Acute Discharge Plan - Follow Up Plan Condition: GOOD Disposition: HOME/ ROUTINE Instructions: Myocardial Infarction (DC), Myocardial Infarction (GEN) Referrals: Timmy Rider MD [Primary Care Provider] -
[2017-06-12 16:19] VITALS: TEMP 97.9; O2SAT 96
[2017-06-12 21:26] VITALS: BP 170/65; PULSE 66
--- NOTE | 2017-06-14 18:18 | CP.PCM.DIS ---
<Edward Norman - Last Filed: 06/14/17 18:07> Provider - Provider Date of Admission: 06/11/17 19:04 Attending physician: Beverly Haley MD Primary care physician: Timmy Rider MD Consults: Cardiology: Dr. Josue Martel Time Spent in preparation of Discharge (in minutes): 36 Diagnosis - Discharge Diagnosis (1) NSTEMI (non-ST elevated myocardial infarction) Status: Acute Hospital Course - Hospital Course Hospital Course: Patient is an 87 year old female with a PMH of hypertension, HLD, CAD stent x1, and spinal stenosis who presents to the emergency department with complaints of general fatigue and lightheadedness. Patient was admitted to [facility] for chest pain rule out. The patient was medically managed for symptoms. She was seen by Dr. Martel with cardiology and evaluated with a [facility] which showed 90% blockage of the left main artery and complete occlusion of the RCA. The patient was advised on her options of medical therapy vs. PCI vs. CABG. The patient is being scheduled for CABG at [facility] in the coming week. The patient was placed in the TCU for minimal physical therapy and observation while awaiting placement. Patient was discharged to [facility] for CABG. Discharge Exam - Head Exam Head Exam: ATRAUMATIC, NORMAL INSPECTION, NORMOCEPHALIC - Eye Exam Eye Exam: EOMI, Normal appearance, PERRL - Respiratory Exam Respiratory Exam: Clear to PA & Lateral, NORMAL BREATHING PATTERN - Cardiovascular Exam Cardiovascular Exam: REGULAR RHYTHM, +S1, +S2 - GI/Abdominal Exam GI & Abdominal Exam: Normal Bowel Sounds, Soft, Unremarkable - Extremities Exam Extremities exam: full ROM, normal capillary refill, pedal pulses present - Neurological Exam Neurological exam: Alert, CN II-XII Intact, Normal Gait, Oriented x3, Reflexes Normal - Psychiatric Exam Psychiatric exam: Normal Affect, Normal Mood - Skin Skin Exam: Dry, Intact, Normal Color, Warm Discharge Plan - Follow Up Plan Condition: GOOD Disposition: OTHER INSTITUTION Instructions: Myocardial Infarction (DC), Myocardial Infarction (GEN), Chest Pain (DC), Chest Pain (GEN), Hypertension (DC), Hypertension (GEN) Additional Instructions: 1. Follow up with your PMD. 2. Follow up with labor relations specialist. 3. Follow up with TCV surgeon. 4. Take medications as prescribed. 5. Return to hospital if you experience worsening of your symptoms Referrals: Timmy Rider MD [Primary Care Provider] - <Beverly Haley - Last Filed: 06/15/17 07:16> Provider - Provider Date of Admission: 06/11/17 19:04 Attending physician: Beverly Haley MD Primary care physician: Timmy Rider MD Attending/Attestation - Attestation I have personally seen and examined this patient.: Yes I have fully participated in the care of the patient.: Yes I have reviewed all pertinent clinical information, including history, physical exam and plan: Yes Notes (Text): 06/15/17 07:16 Attending note; Patient seen and examined with resident in TCU. Patient is a 87-year-old female with a past medical history of hypertension, hypercholesemia, CAD with stent placement is admitted with shortness of breath and chest discomfort. s/pacute non-ST elevation [place]; continue aspirin, Lipitor, metoprolol, Diovan. Cardiac Revealed 90% left main disease. awaiting for a bed in [facility] under Dr. Hightower's care for CABG. Cardiology evaluation appreciated. Transfer to [facility] for CABG. Upon discharge the patient will follow up with PMD . Diagnosis; Coronary artery disease/left main disease CABG evaluation Hypertension Hyperlipidemia 06/15/17 07:16
== END 2017-06-12 21:30 | disposition short-term general hospital (02) | DRG 282 ==
LOC: TRCU 19:04
PROVIDERS: ADMIT Internal Medicine; ATTEND Internal Medicine
PROC: F07Z9ZZ Gait Training/Functional Ambulation Treatment (ICD-10-PCS; principal; 2017-06-12)
DX: I21.4 Non-ST elevation (NSTEMI) myocardial infarction (principal); I11.0 Hypertensive heart disease with heart failure; I50.9 Heart failure, unspecified; I25.82 Chronic total occlusion of coronary artery; I25.10 Atherosclerotic heart disease of native coronary artery without angina pectoris; M48.00 Spinal stenosis, site unspecified; E78.5 Hyperlipidemia, unspecified; H40.9 Unspecified glaucoma; Z95.5 Presence of coronary angioplasty implant and graft; Z75.1 Person awaiting admission to adequate facility elsewhere; Z82.49 Family history of ischemic heart disease and other diseases of the circulatory system

== ENCOUNTER 2018-05-30 14:24 | Emergency (ER) | payer MEDICARE ==
[2018-05-30 14:24] VITALS: BMI 27.1
[2018-05-30 15:04] VITALS: RESP 18; TEMP 99.4
--- NOTE | 2018-05-30 15:53 | ED PDOC ---
Arrival/HPI - General Chief Complaint: Trauma Time Seen by Provider: 05/30/18 14:50 Historian: Patient - History of Present Illness Narrative History of Present Illness (Text): 05/30/18 15:50 88 year old female, whose past medical history includes hypertension, hyperlipidemia, Cardiac stents, Spinal stenosis, pacemaker, and CABG, who presents to the emergency department complaining of headache and pain to buttox s/p fall earlier today. Patient notes the wind blew open the door she was opening, where she fell on her buttox and hit her head. She is not on blood thinners. Patient denies any fever, chills, chest pain, shortness of breath, nausea, vomiting, diarrhea, back pain, neck pain, dizziness, or any other complaints. PMD: Dr. Rider Time/Duration: Prior to Arrival Symptom Onset: Sudden Symptom Course: Unchanged Activities at Onset: Light Context: Home Past Medical History - Provider Review Nursing Documentation Reviewed: Yes - Infectious Disease Hx of Infectious Diseases: None - Reproductive Menopause: Yes - Cardiac Hx Hypertension: Yes Hx Pacemaker: Yes - Pulmonary Hx Pneumonia: Yes - Neurological Hx Neurological Disorder: No - HEENT Hx HEENT Disorder: Yes (Far-sided; Reading glasses) Hx Glaucoma: Yes - Renal Hx Renal Disorder: No - Endocrine/Metabolic Hx Endocrine Disorders: No - Hematological/Oncological Hx Blood Disorders: No - Integumentary Hx Dermatological Disorder: No - Musculoskeletal/Rheumatological Hx Falls: Yes - Gastrointestinal Hx Gastrointestinal Disorders: No - Genitourinary/Gynecological Hx Genitourinary Disorders: No - Psychiatric Hx Psychophysiologic Disorder: No Hx Substance Use: No - Surgical History Hx Coronary Stent: Yes - Anesthesia Hx Anesthesia: Yes Hx Anesthesia Reactions: No Hx Malignant Hyperthermia: No - Suicidal Assessment Feels Threatened In Home Enviroment: No Family/Social History - Physician Review Nursing Documentation Reviewed: Yes Family/Social History: Unknown Family HX Smoking Status: Never Smoked Hx Alcohol Use: No Hx Substance Use: No Hx Substance Use Treatment: No Allergies/Home Meds Allergies/Adverse Reactions: Allergies No Known Allergies Allergy (Verified 06/11/17 20:15) Home Medications: Home Meds Medication Instructions Recorded Confirmed Brimonidine 0.15% [Alphagan P 1 drop OU BID 02/09/15 06/11/17 0.15% Opht] Furosemide [Lasix] 20 mg PO DAILY 02/09/15 06/11/17 Latanoprost 0.005% Opht [Xalatan 1 drop OU DAILY 02/09/15 06/11/17 Opht] Review of Systems - Physician Review All systems were reviewed & negative as marked: Yes - Review of Systems Constitutional: Normal Eyes: Normal ENT: Normal Respiratory: Normal. absent: SOB, Cough Cardiovascular: Normal. absent: Chest Pain Gastrointestinal: Normal. absent: Abdominal Pain Genitourinary Female: Normal. absent: Dysuria, Frequency Musculoskeletal: Other (buttox pain). absent: Back Pain, Neck Pain Skin: Normal. absent: Rash Neurological: Headache. absent: Dizziness Endocrine: Normal Hemo/Lymphatic: Normal Psychiatric: Normal Physical Exam Vital Signs Reviewed: Yes Vital Signs Temp Pulse Resp BP Pulse Ox 05/30/18 17:00 73 18 161/82 H 98 05/30/18 15:03 99.4 F 72 18 194/97 H 99 Temperature: Afebrile Blood Pressure: Hypertensive Pulse: Regular Respiratory Rate: Normal Appearance: Positive for: Well-Appearing, Non-Toxic, Comfortable Pain Distress: None Mental Status: Positive for: Alert and Oriented X 3 - Systems Exam Head: Present: Atraumatic, Normocephalic. No: Contusion, Abrasion, Laceration Pupils: Present: PERRL Extroacular Muscles: Present: EOMI Conjunctiva: Present: Normal Mouth: Present: Moist Mucous Membranes Neck: Present: Normal Range of Motion. No: MIDLINE TENDERNESS, Paraspinal Tenderness Respiratory/Chest: Present: Clear to Auscultation, Good Air Exchange. No: Respiratory Distress, Accessory Muscle Use Cardiovascular: Present: Regular Rate and Rhythm, Normal S1, S2. No: Murmurs Abdomen: No: Tenderness, Distention, Peritoneal Signs Back: Present: Normal Inspection. No: CVA Tenderness, Midline Tenderness, Paraspinal Tenderness Upper Extremity: Present: Normal Inspection. No: Cyanosis, Edema Lower Extremity: Present: Normal Inspection. No: Edema Neurological: Present: GCS=15, CN II-XII Intact, Speech Normal Skin: Present: Warm, Dry, Normal Color, Abrasion (abrasion on dorsal side of rt hand). No: Rashes Psychiatric: Present: Alert, Oriented x 3, Normal Insight, Normal Concentration Medical Decision Making ED Course and Treatment: 05/30/18 15:52 Impression: Mechanical Fall with Head and Buttocks Injury Differential Diagnosis included but are not limited to: Rule out bleed r/o fracture Plan: -- CT Head -- Xray Rt Hand -- Xray Pelvis -- Reassess and disposition Progress Notes: 05/30/18 17:19 Xray Pelvis reviewed, shows: IMPRESSION: No acute findings. Limitations of the current examination: Single AP view only. CT Head reviewed, shows: IMPRESSION: No acute intracranial abnormalities. No significant findings to account for the clinical presentation. No significant interval change compared to the prior examination(s). Xray Hand reviewed, shows: IMPRESSION: Severe osteoarthritic change. No acute findings. Rsdiology reports reviewed with patient. Patient denies any pain. She is able to walk with no issues and at her baseline. Her son will take her home. She will f/u with her primary care doctor this week. - RAD Interpretation Radiology Orders: 05/30/18 15:38 HEAD W/O CONTRAST [CT] Stat HAND RIGHT 3 VIEWS [RAD] Stat PELVIS ONE VIEW [RAD] Stat - Scribe Statement The provider has reviewed the documentation as recorded by the Scribjaqueline Howard All medical record entries made by the Scribe were at my direction and personally dictated by me. I have reviewed the chart and agree that the record accurately reflects my personal performance of the history, physical exam, medical decision making, and the department course for this patient. I have also personally directed, reviewed, and agree with the discharge instructions and disposition. Disposition/Present on Arrival - Present on Arrival Any Indicators Present on Arrival: No History of DVT/PE: No History of Uncontrolled Diabetes: No Urinary Catheter: No History of Decub. Ulcer: No History Surgical Site Infection Following: None - Disposition Have Diagnosis and Disposition been Completed?: Yes Diagnosis: Fall, Head injury, Hand abrasion, Contusion, buttock Disposition: HOME/ ROUTINE Disposition Time: 17:51 Patient Plan: Discharge Condition: IMPROVED Discharge Instructions (ExitCare): Closed Head Injury (DC) Additional Instructions: MORENA LASSITER, thank you for letting us take care of you today. Your provider was John Mckeon DO and you were treated for FALL with head Injury , hand abrasion, buttocks contusion. The emergency medical care you received today was directed at your acute symptoms. If you were prescribed any medication , please fill it and take as directed. It may take several days for your symptoms to resolve. Return to the Emergency Department if your symptoms worsen , do not improve, or if you have any other problems. Please contact your doctor or call one of the physicians/clinics you have been referred to that are listed on the Patient Visit Information form that is included in your discharge packet. Bring any paperwork you were given at discharge with you along with any medications you are taking to your follow up visit. Our treatment cannot replace ongoing medical care by a primary care provider outside of the emergency department. Thank you for allowing the [facility] team to be part of your care today. If you had an X-Ray or CT scan: A Radiologist will review the ED reading if any change in treatment is needed we will contact you. If you had a blood, urine, or wound culture: It will take several days for the results, if any change in treatment is needed we will contact you. If you had an STI test: It will take 48 hours for the results. Please call after 1 week if you have not heard back. Referrals: Timmy Rider MD [Staff Provider] - Follow up with primary Forms: [employer] (Tajik)
--- NOTE | 2018-05-30 16:55 | RAD ---
Date of service: 05/30/2018 PROCEDURE: Pelvis HISTORY: fall r/o fx COMPARISON: None available. TECHNIQUE: Single view study. FINDINGS: There are no osseous abnormalities to suggest fracture. The pelvic ring is intact. Preserved femoral-acetabular relationship. Negative study for protrusio, subluxation or dislocation. Degenerative changes: Severe an approximately symmetrical. IMPRESSION: No acute findings. Limitations of the current examination: Single AP view only.
--- NOTE | 2018-05-30 16:55 | RAD ---
PROCEDURE: Right Hand Radiographs. HISTORY: fall r/o fx COMPARISON: None. FINDINGS: BONES: No acute fracture JOINTS: Severe osteoarthritic changes proximal and distal interphalangeal joints is well carpal 1st metacarpal joint. SOFT TISSUES: Juxta-articular soft tissue swelling noted. OTHER FINDINGS: None. IMPRESSION: Severe osteoarthritic change. No acute findings.
--- NOTE | 2018-05-30 16:57 | CT ---
Date of service: 05/30/2018 PROCEDURE: CT HEAD WITHOUT CONTRAST. HISTORY: r/o cva COMPARISON: 06/07/2017. TECHNIQUE: Axial computed tomography images were obtained through the head/brain without intravenous contrast. Coronal and sagittal reconstructed images. Radiation dose: Total exam DLP = 872.98 mGy-cm. This CT exam was performed using one or more of the following dose reduction techniques: Automated exposure control, adjustment of the mA and/or kV according to patient size, and/or use of iterative reconstruction technique. FINDINGS: HEMORRHAGE: No intracranial hemorrhage. BRAIN: No mass effect or edema. Cortical atrophy, periventricular small vessel disease. 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 VENTRICLES: Unremarkable. No hydrocephalus. CALVARIUM: Unremarkable. PARANASAL SINUSES: Unremarkable as visualized. No significant inflammatory changes. MASTOID AIR CELLS: Unremarkable as visualized. No inflammatory changes. OTHER FINDINGS: None. IMPRESSION: No acute intracranial abnormalities. No significant findings to account for the clinical presentation. No significant interval change compared to the prior examination(s).
[2018-05-30 17:50] VITALS: BP 161/82; PULSE 73; O2SAT 98
== END 2018-05-30 17:51 | disposition home or self-care (01) ==
LOC: ED 14:24
DX: S09.90XA Unspecified injury of head, initial encounter (principal); S30.0XXA Contusion of lower back and pelvis, initial encounter; S60.511A Abrasion of right hand, initial encounter; W19.XXXA Unspecified fall, initial encounter; E78.5 Hyperlipidemia, unspecified; I10 Essential (primary) hypertension; Z95.0 Presence of cardiac pacemaker

== ENCOUNTER 2019-04-03 23:52 | Emergency (ER) | payer MEDICARE ==
[2019-04-03 23:52] VITALS: BMI 27.1
[2019-04-04 00:12] VITALS: RESP 18; O2SAT 96
--- NOTE | 2019-04-04 00:44 | ED PDOC ---
Arrival/HPI - General Chief Complaint: Trauma Time Seen by Provider: 04/04/19 00:08 Historian: Patient - History of Present Illness Narrative History of Present Illness (Text): 04/04/19 00:41 89 year old female, with past medical history of hypertension, hyperlipidemia, cardiac stents, spinal stenosis, pacemaker, and CABG, who presents to the emergency department after she fell. States that she was trying to open the refrigerator door when she slipped and fell backwards, is now complaining of pain to the back of the head and R sided mid back pain worse with movement. Patient states that she felt well earlier today, reports no dizziness, CP, palpitations or SOB causing her to fall. She is not on blood thinners. Patient denies any fever, chills, chest pain, shortness of breath, nausea, vomiting, diarrhea, abd pain, neck pain, dizziness, or any other complaints. PMD: Dr. Rider Past Medical History - Infectious Disease Hx of Infectious Diseases: None - Cardiac Hx Cardiac Disorders: Yes Hx Hypertension: Yes Hx Pacemaker: Yes - Pulmonary Hx Respiratory Disorders: Yes Hx Pneumonia: Yes - Neurological Hx Neurological Disorder: No - HEENT Hx HEENT Disorder: Yes (Far-sided; Reading glasses) Hx Glaucoma: Yes - Renal Hx Renal Disorder: No - Endocrine/Metabolic Hx Endocrine Disorders: No - Hematological/Oncological Hx Blood Disorders: No - Integumentary Hx Dermatological Disorder: No - Musculoskeletal/Rheumatological Hx Falls: Yes - Gastrointestinal Hx Gastrointestinal Disorders: No - Genitourinary/Gynecological Hx Genitourinary Disorders: No - Psychiatric Hx Psychophysiologic Disorder: No Hx Substance Use: No - Surgical History Hx Coronary Stent: Yes - Anesthesia Hx Anesthesia: Yes Hx Anesthesia Reactions: No Hx Malignant Hyperthermia: No - Suicidal Assessment Feels Threatened In Home Enviroment: No Family/Social History Family/Social History: No Known Family HX Smoking Status: Never Smoked Hx Alcohol Use: No Hx Substance Use: No Hx Substance Use Treatment: No Allergies/Home Meds Allergies/Adverse Reactions: Allergies No Known Allergies Allergy (Verified 04/04/19 00:12) Home Medications: Home Meds Medication Instructions Recorded Confirmed Brimonidine 0.15% [Alphagan P 1 drop OU BID 02/09/15 06/11/17 0.15% Opht] Furosemide [Lasix] 20 mg PO DAILY 02/09/15 06/11/17 Latanoprost 0.005% Opht [Xalatan 1 drop OU DAILY 02/09/15 06/11/17 Opht] Review of Systems - Review of Systems Constitutional: absent: Fatigue, Fevers Respiratory: absent: SOB, Cough Cardiovascular: absent: Chest Pain, Palpitations Gastrointestinal: absent: Abdominal Pain, Diarrhea, Nausea, Vomiting Genitourinary Female: absent: Dysuria, Frequency Musculoskeletal: Back Pain. absent: Arthralgias, Neck Pain Skin: absent: Rash, Pruritis, Skin Lesions Neurological: Headache. absent: Dizziness Physical Exam Vital Signs Temp Pulse Resp BP Pulse Ox 04/04/19 00:10 99.2 F 68 18 181/61 H 96 Temperature: Afebrile Blood Pressure: Hypertensive Pulse: Regular Respiratory Rate: Normal Appearance: Positive for: Well-Appearing, Non-Toxic, Comfortable Pain Distress: Mild Mental Status: Positive for: Alert and Oriented X 3 - Systems Exam Head: Present: Atraumatic, Normocephalic. No: Tenderness, Contusion, Swelling Pupils: Present: PERRL Extroacular Muscles: Present: EOMI Conjunctiva: Present: Normal Mouth: Present: Moist Mucous Membranes Neck: Present: Normal Range of Motion. No: MIDLINE TENDERNESS, Paraspinal Tenderness Respiratory/Chest: Present: Clear to Auscultation, Good Air Exchange. No: Respiratory Distress, Accessory Muscle Use, Tender to Palpation Cardiovascular: Present: Regular Rate and Rhythm, Normal S1, S2. No: Murmurs Abdomen: No: Tenderness, Distention, Peritoneal Signs Back: Present: Normal Inspection, Midline Tenderness (+midline tenderness to the lower T spine), Paraspinal Tenderness (+parathoracic tenderness to the R side). No: CVA Tenderness Upper Extremity: Present: Normal Inspection. No: Cyanosis, Edema Lower Extremity: Present: Normal Inspection. No: Edema Neurological: Present: GCS=15, CN II-XII Intact, Speech Normal Skin: Present: Warm, Dry, Normal Color. No: Rashes Psychiatric: Present: Alert, Oriented x 3, Normal Insight, Normal Concentration Medical Decision Making ED Course and Treatment: 04/04/19 00:45 Plan : - CT head - XR R ribs - XR T spine - Lidoderm patch XR T spine : moderate to severe djd, no fracture. XR R ribs : no fracture, no pneumothorax. CT scan of the head. Electronically signed on April 04, 2019 2:26:59 AM EDT by: Prerna Delgado M.D. IMPRESSION: 1. Age-appropriate cerebellar and cerebral atrophy. 2. Mild chronic microvascular disease. 3. No evidence of acute intracranial pathology. 04/04/19 02:22 On re-evaluation, patient is in no acute distress. I have discussed the results and plan with the patient, who expresses understanding. Patient in agreement with plan to be discharged home. Patient is stable for discharge. Patient was instructed to follow up with physician or return if symptoms worsen or new concerning symptoms arise. - RAD Interpretation Radiology Orders: 04/04/19 00:14 HEAD W/O CONTRAST [CT] Stat 04/04/19 00:31 DORSAL (THORACIC) SPINE [RAD] Stat RIBS RIGHT & PA CHEST [RAD] Stat - Medication Orders Current Medication Orders: Discontinued Medications Acetaminophen (Tylenol 325mg Tab) 650 mg PO STAT STA Stop: 04/04/19 00:32 - PA / SECURITIES CLERK / Resident Statement MD/DO has reviewed & agrees with the documentation as recorded. Disposition/Present on Arrival - Present on Arrival Any Indicators Present on Arrival: No History of DVT/PE: No History of Uncontrolled Diabetes: No Urinary Catheter: No History of Decub. Ulcer: No History Surgical Site Infection Following: None - Disposition Have Diagnosis and Disposition been Completed?: Yes Diagnosis: Head injury, Back pain Disposition: HOME/ ROUTINE Disposition Time: 02:30 Patient Plan: Discharge Condition: STABLE Discharge Instructions (ExitCare): Closed Head Injury, Upper Back Pain Additional Instructions: Thank you for letting us take care of you today. You were treated for head injury, back pain. The emergency medical care you received today was directed at your acute symptoms. Return to the Emergency Department if your symptoms worsen, do not improve, or if you have any other problems. Please contact your doctor in 2 days for re-evaluation and follow up. Bring any paperwork you were given at discharge with you along with any medications you are taking to your follow up visit. Our treatment cannot replace ongoing medical care by a primary care provider (PCP) outside of the emergency department. Thank you for allowing the [facility] team to be part of your care today. If you had an X-Ray or CT scan: A Radiologist will review the ED reading if any change in treatment is needed we will contact you. Prescriptions: Lidocaine 5% [Lidoderm] 1 ea TD Q12H PRN #20 patch PRN Reason: Pain, Moderate (4-7) Referrals: Timmy Rider MD [Primary Care Provider] - Follow up with primary Forms: [employer] (Tajik)
[2019-04-04] MEDS ORDERED: Lidocaine 5% Patch TD STA (01:04)
[2019-04-04 03:31] VITALS: BP 156/60; PULSE 65; TEMP 99
--- NOTE | 2019-04-04 07:40 | RAD ---
Date of service: 04/04/2019 HISTORY: pain COMPARISON: No prior. TECHNIQUE: 2 views obtained. FINDINGS: BONES: Diffuse osteopenia suggests osteoporosis. There is a kyphotic thoracic spinal deformity without gross vertebral body fracture appreciable. Mild anterior wedging is suggested a few inferior thoracic vertebral bodies and may reflect limited fractures of indeterminate age. Clinically correlate further. DISC SPACES: Advanced multilevel degenerative spondylosis appreciated with calcifications throughout majority of intervertebral discs as well. SOFT TISSUES: Extensive thoracic and upper abdominal aortic calcific atherosclerosis identified. OTHER FINDINGS: Incidental note is made of bipolar left subclavian permanent pacemaker and cardiomegaly. 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 No spondylolisthesis. Multilevel degenerative spondylosis. Minimal anterior wedge compression fractures of 1 or 2 inferior thoracic vertebral bodies is questioned, indeterminate in age.
--- NOTE | 2019-04-04 07:42 | RAD ---
Date of service: 04/04/2019 PROCEDURE: Radiographs of the Chest and Right Ribs. HISTORY: pain COMPARISON: Portable chest 06/07/2017. TECHNIQUE: Frontal radiograph of the chest and multiple oblique radiographs of the right ribs were obtained. 4 views obtained. FINDINGS: RIGHT RIBS: No fracture or focal lesion visualized. Diffuse osteopenia suggests osteoporosis. LUNGS: Clear. PLEURA: No pneumothorax or pleural fluid. CARDIOVASCULAR: Cardiomegaly appears stable. No pulmonary vascular congestion. Calcific atherosclerotic changes are seen related to the thoracic aorta. Interval left subclavian bipolar permanent cardiac pacemaker identified in situ with generator overlying the left pectoralis region and 2 leads entering into the region of the heart. OTHER FINDINGS: None. IMPRESSION: No definite fracture of the right ribs. Diffuse osteopenia suggests osteoporosis. Interval permanent cardiac pacemaker as discussed above in situ with stable cardiomegaly evident. No acute infiltrate or pulmonary vascular congestion appreciable.
--- NOTE | 2019-04-04 08:37 | CT ---
Date of service: 04/04/2019 PROCEDURE: CT HEAD WITHOUT CONTRAST. HISTORY: Status post fall with head trauma. COMPARISON: Comparison made with CT scan brain 05/30/2018. TECHNIQUE: Axial computed tomography images were obtained through the head/brain without intravenous contrast. Radiation dose: Total exam DLP = 853.02 mGy-cm. This CT exam was performed using one or more of the following dose reduction techniques: Automated exposure control, adjustment of the mA and/or kV according to patient size, and/or use of iterative reconstruction technique. FINDINGS: HEMORRHAGE: No acute parenchymal, subarachnoid nor extra-axial hemorrhage. BRAIN: Moderate diffuse and confluent chronic periventricular white matter ischemic changes seen extending peripherally into the deep and subcortical white matter both cerebral hemispheres. 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 Moderate generalized volume loss. VENTRICLES: Unremarkable. No hydrocephalus. CALVARIUM: Unremarkable. PARANASAL SINUSES: Unremarkable as visualized. No significant inflammatory changes. MASTOID AIR CELLS: Unremarkable as visualized. No inflammatory changes. OTHER FINDINGS: Changes of bilateral cataract surgery. IMPRESSION: Moderate diffuse and confluent chronic periventricular white matter ischemic changes seen extending peripherally into the deep and subcortical white matter both cerebral hemispheres. 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 Moderate generalized volume loss.
== END 2019-04-04 02:29 | disposition home or self-care (01) ==
LOC: ED 23:52
DX: S09.90XA Unspecified injury of head, initial encounter (principal); W01.0XXA Fall on same level from slipping, tripping and stumbling without subsequent striking against object, initial encounter; M54.6 Pain in thoracic spine; I10 Essential (primary) hypertension; E78.5 Hyperlipidemia, unspecified; Z95.0 Presence of cardiac pacemaker; Z95.1 Presence of aortocoronary bypass graft; Z95.5 Presence of coronary angioplasty implant and graft